=== PATIENT | female | born 1985 | race African-American/Black ===

== ENCOUNTER 2019-11-21 09:24 | Outpatient (CLI) | payer OTHER, SELFPAY ==
[2019-11-21 09:40] LABS: Hematocrit 36.4 % (37.0-47.0); Hemoglobin 12.1 g/dL (12.0-15.0); Immature Platelet Fraction Pct 6.5 % (0.9-11.2); Mean Corpuscular HGB Conc 33.2 g/dl (32-36); Mean Corpuscular Hemoglobin 31.3 pg (26-34); Mean Corpuscular Volume 94.3 fl (80-100); Platelet Count Result 117 k/mm3 (150-375); Red Blood Count 3.86 M/mm3 (4.2-5.4); Red Cell Distribution Width 14.1 % (11.5-14.5); White Blood Count 7.3 K/mm3 (4.5-10.0)
[2019-11-22 08:16] LABS: Rapid Plasma Reagin Non-Reactive (NonReactive)
== END 2019-11-21 09:25 | disposition home or self-care (01) ==
LOC: ANHLAB 09:26
PROVIDERS: PCP Family Medicine; Visit Provider Obstetrics & Gynecology
DX: Z01.818 Encounter for other preprocedural examination (principal)
CPT/HCPCS: 36415; 85027; 85055; 86592; 86850; 86900; 86901

== ENCOUNTER 2019-11-22 05:23 | Inpatient (IN) | payer OTHER, SELFPAY ==
--- NOTE | 2019-11-21 10:20 | WPDANESEPP ---
Anes - Eval Pre Procedure Procedure: Operation Date: 11/22/19 07:30 Proposed Procedures p Repeat Section - Nicolas Patel MD Date/Time: 11/21/19 10:20 Pre Op Diagnosis: Pre-admit Patient Data Age: 34 Gender: F Height: Weight: Allergies Allergy/AdvReac Type Severity Reaction Status Date / Time Penicillins Allergy Intermediate hives, Verified 08/06/18 14:14 fatigue, pain Home Medications Medication Instructions Recorded Confirmed Type PNV cmb#95-ferrous fumarate-FA 1 tablet PO DAILY 10/31/19 10/31/19 History [] Patient hx anesthesia problems: none Family hx anesthesia problems: none PMFSH Surgical History Surgical History (Updated 11/21/19 @ 10:21 by Antonette Dumont CRNA) H/O dilation and curettage S/P appendectomy S/P section Family History Family History (Updated 10/31/19 @ 15:01 by Fei Dickerson RN) Grandparent Diabetes mellitus Mother Thyroid disease Father Testicular cancer Lung cancer Social History Social History Substance use: never Gender identity (if verbalized by the patient): Female Spiritual care concerns: No Exam Day of Procedure 11/21/19 10:20
[2019-11-22] VITALS (53 sets, daily range): BP systolic 72–104; BP diastolic 47–67; PULSE 61–111; RESP 16–18; TEMP 36.1–36.8; O2SAT 95–100; BMI 31.8
--- NOTE | 2019-11-22 06:00 | LDADM ---
This patient, Nohemy Knight, was admitted to Labor/Delivery/Recovery 120 on 11/22/19 at 05:23. Plans for labor, pain management and were discussed with patient. Patient/family oriented to hospital policies and general routines including ID bracelet, bed and alarms, visiting hours, pain management, procedures, bathroom and other care routines, personal items, smoking policy, room service/diet and guest tray routines, security routines, and visiting hours. Patient/Family are encouraged to report perceived risks to care and to ask questions if they do not understand what they are told or what they should do. See OBIX for further documentation.
[2019-11-22 06:03] LABS: Immature Platelet Fraction Pct 6.6 % (0.9-11.2); Mean Platelet Volume 11.2 fl (7.4-10.4); Platelet Count Result 117 k/mm3 (150-375)
[2019-11-22] MEDS: LACTATED RINGERS 1,000 ML 999 ML IV CONT (06:32)
--- NOTE | 2019-11-22 06:37 | WPDANESEPPF ---
Anes - Initial Pre Proc Eval Procedure: Operation Date: 11/22/19 07:30 Proposed Procedures p Repeat Section - Nicolas Patel MD Date/Time: 11/22/19 06:37 Surgeon: Nicolas Patel MD Pre Op Diagnosis: Section Patient Data Age: 34 Gender: F Height: 5 ft 2 in Weight: 79 kg Last Vital Signs Pulse 111 H 11/22/19 06:31 BP 93/65 L 11/22/19 06:31 Allergies Allergy/AdvReac Type Severity Reaction Status Date / Time Penicillins Allergy Intermediate hives, Verified 08/06/18 14:14 fatigue, pain Home Medications Medication Instructions Recorded Confirmed Type PNV cmb#95-ferrous fumarate-FA 1 tablet PO DAILY 10/31/19 10/31/19 History [] Laboratory Tests 11/22/19 05:56 Plt Count 117 k/mm3 L k/mm3 (150-375) MPV 11.2 fl H fl (7.4-10.4) % Immature Plt Fraction 6.6 % % (0.9-11.2) Patient hx anesthesia problems: none Family hx anesthesia problems: none PMFSH Surgical History Surgical History H/O dilation and curettage S/P appendectomy S/P section Family History Family History Grandparent Diabetes mellitus Mother Thyroid disease Father Testicular cancer Lung cancer Social History Social History Substance use: never Gender identity (if verbalized by the patient): Female Spiritual care concerns: No Anes - Eval Final PreProcedure Day of Procedure 11/22/19 06:37 Patient weight: obese Heart: regular rate and rhythm Lungs: clear to auscultation Airway: Mallampati scale class II Neurological: alert and oriented Last oral intake: >/= 8 hours ASA classification: II Emergent: no Anesthetic plan: proceed Anesthesia type and monitoring: regional spinal and standard monitoring Informed Consent: The patient's anesthetic plan and its attendant risks and benefits were discussed with the patient/family/POA. Questions were solicited and answers provided to the satisfaction of the patient/family/POA.
[2019-11-22] MEDS: CLINDAMYCIN 900 MG/NS 50 ML 900 MG/50 ML PIGGYBACK 50 MG IVPB (06:56)
[2019-11-22] MEDS: GENTAMICIN SULFATE INJ 310 MG in DEXTROSE 5% 100 ML 100 MG IVPB (07:10)
--- NOTE | 2019-11-22 07:14 | PM.IMHP ---
H&P: HPI History of Present Illness Date/Time: 11/22/19 07:14 Chief complaint: Section Narrative: Nohemy Knight is a 34 year old female 3 para 1011 at 39 weeks gestation who presents for repeat delivery. She has a history of a previous . She has no complaints. She denies any loss of fluid, vaginal bleeding. She denies any headache, blurry vision, epigastric pain. She denies any chest pain shortness of breath. She denies any nausea , vomiting, fever, chills. Review of Systems Constitutional: Constitutional: Reports no additional constitutional complaints, Denies fatigue, Denies headache(s), Denies lethargy and Denies weakness Eyes: Eyes: Reports no additional eye complaints, Denies blurry vision and Denies photophobia ENT: Reports as per HPI, Denies headache(s) and Denies neck pain Cardiovascular: Cardiovascular: Denies chest pain, Denies diaphoresis, Denies leg edema, Denies palpitations and Denies dyspnea Respiratory: Respiratory: Denies hemoptysis, Denies dyspnea and Denies wheezing Gastrointestinal: Gastrointestinal: Denies abdominal pain, Denies melena, Denies bloating, Denies hematochezia, Denies nausea and Denies vomiting Genitourinary: Genitourinary: Reports no additional female genitourinary complaints Musculoskeletal: Musculoskeletal: Denies joint swelling, Denies neck pain, Denies numbness and Denies stiffness Neurologic: Denies Abnormal speech present, Denies confusion, Denies headache(s), Denies numbness and Denies weakness Psychiatric: Psychiatric: Denies anxiety, Denies confusion, Denies depression, Denies homicidal ideation and Denies suicidal ideation Endocrine: Endocrine: Denies fatigue and Denies palpitations Allergic/Immunologic: Allergic/Immunologic: Denies wheezing PMFSH Surgical History Surgical History H/O dilation and curettage S/P appendectomy S/P section Family History Family History Grandparent Diabetes mellitus Mother Thyroid disease Father Testicular cancer Lung cancer Social History Social History Smoking status: Never smoker Second hand tobacco smoke exposure: No Substance use: never Gender identity (if verbalized by the patient): Female Spiritual care concerns: No Meds Home Medications and Allergies Home Medications Medication Instructions Recorded Confirmed Type PNV cmb#95-ferrous fumarate-FA 1 tablet PO DAILY 10/31/19 10/31/19 History [] Allergies Allergy/AdvReac Type Severity Reaction Status Date / Time Penicillins Allergy Intermediate hives, Verified 08/06/18 14:14 fatigue, pain Vital Signs Vital Signs - 24 hr 11/22/19 05:55 11/22/19 06:01 11/22/19 06:31 Pulse Rate 96 91 111 H Blood Pressure 93/60 L 102/59 L 93/65 L Exam Const: General: healthy appearing, comfortable and no acute distress; No confusion Orientation/consciousness: No confusion Eyes: Direct Ophthalmoscopy: No photophobia Resp: Auscultation: clear to auscultation bilaterally, no rales, no rhonchi and no wheezes Cardio: Rate: regular rate Heart sounds: no click, no murmurs and no rubs GI: Inspection: non-distended GI Palp: No abdominal tenderness Auscultation: normal bowel sounds Neuro: General: No confusion Speech: No Abnormal speech present Extrem: General: normal to inspection, no pedal edema and no calf tenderness H&P: Results Labs Labs: Short CBC 11/22/19 Range/Units 05:56 Plt Count 117 L (150-375) k/mm3 Assessment and Plan Assessment and plan (1) Term : Code(s): Z34.90 - Encounter for supervision of normal , unspecified, unspecified trimester Status: Acute (2) Previous section: Code(s): Z98.891 - History of uterine scar from previous surgery
[2019-11-22] MEDS: LACTATED RINGERS 1,000 ML 125 ML IV CONT (07:30)
--- NOTE | 2019-11-22 08:40 | P.OP_ITS ---
Procedure Note - Detailed Date of procedure: 11/22/19 Pre-op diagnosis: Section Term gestation, Previous Post-op diagnosis: same Procedure performed: low-transverse delivery Description of procedure: The patient was taken the operating room. She was prepped and draped in the dorsal supine position with leftward tilt after induction of spinal anesthetic. When anesthesia was found to be adequate a low- transverse skin incision was made and carried down to the level the fascia with the knife. The fascial incision was made at the midline with a scalpel. The fascial incision was extended laterally with Dickey scissors. The fascia was tented upward superior and inferior with Mateo clamps. The rectus muscles were dissected off bluntly. The rectus muscles at the midline. The preperitoneal fat was dissected bluntly at the superior aspect of the separate the rectus muscles. The peritoneal cavity was entered bluntly in the same area. The peritoneal incision was extended superior and inferior with good visualization of bladder. Bladder blade was inserted. A low-transverse incision was made on the uterus with the scalpel. It was carried down the level of the amniotic cavity with a knife. The amniotic cavity bluntly. The uterine incision was made laterally with blunt traction. The was delivered. The cord was clamped and cut. The infant was handed off to waiting pediatric staff. Cord bloods were obtained. The placenta was removed manually. The uterus was exteriorized. Uterus cleared of all clots and debris. Uterus closed in 0 Vicryl in a running locked fashion. An imbricating layer of 0 Vicryl was also placed on the to bolster the closure. The uterus was returned to the abdomen. The gutters were cleared of all clots and debris. The fascia was closed 0 Vicryl in a running fashion. Subcutaneous tissue was irrigated and bleeding areas were cauterized. The skin was closed with subcuticular absorbable sonia. The incision was covered with derma zhang. The patient tolerated the procedure well. She was taken recovery room stable condition. Sponge, lap, needle counts were correct x2. Anesthesia: spinal Surgeon: Nicolas Patel MD Estimated blood loss (mL): 240 Drains: No Packing: No Pathology: none sent Complications: No immediate complications Condition: stable Disposition: floor Findings: Normal maternal anatomy. Average size infant with normal Apgars.
[2019-11-22] MEDS: OXYTOCIN 30 UNITS/NS 500 ML 30 UNITS/500 ML BAG 125 UNITS IV CONT (08:59)
[2019-11-22] MEDS: LORATADINE 10 MG TABLET PO (09:09)
--- NOTE | 2019-11-22 10:46 | PC.NURSE ---
Patient transferred to post room #282 per stretcher from labor and delivery. Support person present. Oriented to unit, room, information board, rooming in, admission packet and security measures. Patient verbalizes understanding.
[2019-11-22] MEDS: IBUPROFEN 600 MG TABLET PO ×2 (12:57→18:40)
[2019-11-22] MEDS: DEXTROSE 5%/0.45% SOD CHL 1,000 ML 125 ML IV CONT (13:25)
[2019-11-23] MEDS: IBUPROFEN 600 MG TABLET PO ×4 (01:23→21:00)
[2019-11-23 04:45] VITALS: BP 90/51; PULSE 78; RESP 16; TEMP 36.8
[2019-11-23 05:06] LABS: Basophils Percent Auto 0.4 % (0.2-1.2); Eosinophils Absolute Auto 0.1 K/mm3 (0-0.3); Eosinophils Percent Auto 1.5 % (0-4.4); Immature Granulocyte Absolute 0.06 K/mm3 (0.00-0.031); Immature Granulocyte Percent A 0.7 % (0-0.5); Immature Platelet Fraction Pct 6.9 % (0.9-11.2); Lymphocytes Absolute Auto 1.03 K/mm3 (0.9-3.2); Lymphocytes Percent Auto 12.6 % (18.3-44.2); Mean Corpuscular HGB Conc 33.3 g/dl (32-36); Mean Corpuscular Hemoglobin 31.6 pg (26-34); Mean Corpuscular Volume 94.7 fl (80-100); Mean Platelet Volume 11.4 fl (7.4-10.4); Monocytes Absolute Auto 0.7 K/mm3 (0.1-0.6); Monocytes Percent Auto 8.2 % (2.6-8.5); Neutrophils Absolute Auto 6.3 K/mm3 (1.3-6.7); Neutrophils Percent Auto 76.6 % (45.5-73.1); Platelet Count Result 118 k/mm3 (150-375); Red Cell Distribution Width 13.9 % (11.5-14.5); White Blood Count 8.2 K/mm3 (4.5-10.0)
[2019-11-23 07:40] VITALS: BP 100/65; PULSE 85; RESP 16; TEMP 36.9; O2SAT 99
--- NOTE | 2019-11-23 07:50 | WPDANLDPN2 ---
Anes-Prog Note L&D Date/Time: 11/23/19 07:50 Comfortable throughout: section Neuraxial method: spinal Epidural/Spinal procedure site: clean & non-tender Neuro status: Neuro function grossly intact. Cardiovascular status: normal Respiratory status: normal Airway patency: baseline Mental status: baseline Post-Op hydration status: normal Vital Signs: Last Vital Signs Temp 36.8 C 11/23/19 04:45 Pulse 78 11/23/19 04:45 Resp 16 11/23/19 04:45 BP 90/51 L 11/23/19 04:45 Pulse Ox 99 11/22/19 14:24 I/O: Intake & Output 11/22/19 11/22/19 11/23/19 15:59 23:59 07:59 Intake Total 1550 1540 Output Total 1375 1700 1300 Balance 175 -160 -1300 Post-procedural complaints: none Patient feedback: Patient satisfied with anesthetic care.
--- NOTE | 2019-11-23 07:51 | WPDANLDNPN2 ---
Anes-Prog Note L&D-Neuraxial Date/Time: 11/23/19 07:51 Neuraxial medications: intrathecal PF morphine Opiod-related complaints: none Patient feedback: Patient satisfied with post-operative pain management.
--- NOTE | 2019-11-23 08:05 | P.PNOB_ITS ---
OB - PN: Subj Subjective Date/time seen: 11/23/19 08:05 Incision open to air and looks good. Fundus firm. Flow controlled. Minimal edema lower ext. Neg homans. No redness, warmth, or tenderness. OB - PN: Obj Data Labs CBC & Chem 7: 11/23/19 04:43 Labs: Laboratory Results - last 24 hr 11/23/19 04:43 WBC 8.2 RBC 3.80 L Hgb 12.0 Hct 36.0 L MCV 94.7 MCH 31.6 MCHC 33.3 RDW 13.9 Plt Count 118 L MPV 11.4 H Immature Gran % (Auto) 0.7 H Neut % (Auto) 76.6 H Lymph % (Auto) 12.6 L [place] % (Auto) 8.2 Eos % (Auto) 1.5 Baso % (Auto) 0.4 Lymph # (Auto) 1.03 [place] # (Auto) 0.7 H Eos # (Auto) 0.1 Baso # (Auto) 0.0 Abs Immat Gran (auto) 0.06 H Absolute Neuts (auto) 6.3 Absolute Nucleated RBC 0.0 Nucleated RBC % 0.0 % Immature Plt Fraction 6.9 OB - PN A/P Time Spent With Patient Time: Total time spent is greater than 50% in coordination of care (as documented) at patient's floor/unit and/or counseling patient: Review of Systems Review of Systems: All systems reviewed & are unremarkable except as noted in HPI and below Exam Const: General: comfortable Chest: Breast/axilla inspection: normal inspection of the breasts Resp: Effort & Inspection: normal respiratory effort Auscultation: clear to auscultation bilaterally Cardio: Rate: regular rate GI: Auscultation: normal bowel sounds Psych: Appearance: grossly normal Affect: normal affect Attitude: cooperative Judgement: Good judgement present (Psych)
[2019-11-23] MEDS: MULTIVIT/MIN/PREN/FOL AC/IRON TABLET 1 TAB PO (08:34)
[2019-11-23] MEDS: DOCUSATE SODIUM 100 MG CAPSULE PO ×2 (08:34→17:07)
--- NOTE | 2019-11-23 11:05 | PC.NURSE ---
Consulted with patient, reports first child and is concerned this infant is sleepy and need to be awoken to feed and will be sleepy at breast. Assured mother this is normal for the first few days. Reviewed infant feeding cues, frequencies, duration of feedings, feeding elimination flow sheet, and signs of adequate intake. Demonstrated stimulation techniques to wake for feeding. Assisted with infant to breast. Reviewed positioning/alignment in cross cradle, holding breast in U hold and guided asymmetrical latch on. Within a few attempts was able to latch correctly. nursed eagerly, with steady draws and frequent swallowing with pausing. Reviewed signs of a correct latch, effective nursing and suck swallow ratio. was able to maintain latch without discomfort to mother. Nipple care reviewed. Suggested to stimulate infant while feeding to keep awake and nursing effectively for increased intake and to assist with maintaining deep latch. Demonstrated how to adjust latch while feeding. Instructed mother to call out for RN assistance if she is unable to latch infant for feeding or she has discomfort with nursing. Instructed feeding should be initiated three hours from start of last feeding or if feeding cues are noted before. Mother voiced understanding of information shared.
[2019-11-23 19:20] VITALS: BP 108/60; PULSE 83; RESP 16; TEMP 36.8
[2019-11-24] MEDS: IBUPROFEN 600 MG TABLET PO (05:13)
[2019-11-24 08:20] VITALS: BP 96/59; PULSE 75; RESP 18; TEMP 37.6; O2SAT 100
--- NOTE | 2019-11-24 08:27 | PM.OBPNVD ---
OB - PN: Subj Subjective Date/time seen: 11/24/19 08:27 Patient comments: no complaints, pain well controlled, incisional pain, tolerating diet and flatus present OB - PN: Obj Data Labs CBC & Chem 7: 11/23/19 04:43 OB - PN A/P Plan day: 2 Plan: routine care and discharge home Comments: POD#2 LTCS - no problems, Time Spent With Patient Time: Total time spent is greater than 50% in coordination of care (as documented) at patient's floor/unit and/or counseling patient: Exam Const: General: comfortable, no acute distress and alert Resp: Effort & Inspection: normal respiratory effort Auscultation: no crackles, no rales and no rhonchi Cardio: Rate: regular rate Heart sounds: no click, no murmurs and no rubs GI: Inspection: non-distended GI Palp: No Tenderness to palpation present (GI) Auscultation: normal bowel sounds Other: Incision - CDI Extrem: General: normal to inspection, no pedal edema and no calf tenderness
--- NOTE | 2019-11-24 08:27 | PM.OBDSVD ---
DS: Admitting Diagnosis Admitting Diagnosis Admitting Diagnosis: Encounter for supervision of normal , unspecified, unspecified trimester DS: Discharge Diagnosis Discharge Diagnosis (1) Previous section: Code(s): Z98.891 - History of uterine scar from previous surgery Status: Acute (2) Term : Code(s): Z34.90 - Encounter for supervision of normal , unspecified, unspecified trimester Status: Acute OB - DS: Summary OB Procedures : None OB Procedures Intrapartum: OB Procedures: : None Peripartum Data Delivery Method: Section Procedures: Procedures Operation Date: 11/22/19 07:30 Actual Procedures Side Surgeon p Repeat Section Not Applicable Nicolas Patel MD complications: none Status at Discharge Functional status at discharge: independent ambulation Time Spent with Patient Time attestation: Total time spent providing and/or coordinating discharge services: Discharge Plan Discharge Discharging Clinician: Nicolas Patel Patient Disposition: Home, Self-Care Activity: pelvic rest Diet: regular Patient Instructions: Antibiotic Form Stand Alone Forms: General Discharge Information Follow-up/Referrals: Nicolas Patel MD [Physician] - Discharge Medications: New hydrocodone-acetaminophen 5-325 mg tablet 1 - 2 tablet PO Q4H PRN (Reason: pain) Qty: 25 RF: 0 Continued PNV cmb#95-ferrous fumarate-FA [] 28 mg iron- 800 mcg Tablet 1 tablet PO DAILY RF: 0 Date of admission: 11/22/19 05:23 Primary Care Provider: Jamar,Chantelle Miller Admitting Provider: Nicolas Patel Attending physician on admission: Nicolas Patel
[2019-11-24] MEDS: DOCUSATE SODIUM 100 MG CAPSULE PO (08:30)
--- NOTE | 2019-11-24 08:30 | PC.NURSE ---
Patient instructed to view the discharge video Mother & Baby Care, The First Two Weeks . Patient was given the opportunity and encouraged to ask questions. Patient verbalized understanding of information shared and has been given the mother/baby guide for home reference.
[2019-11-24] MEDS: MULTIVIT/MIN/PREN/FOL AC/IRON TABLET 1 TAB PO (08:31)
--- NOTE | 2019-11-24 09:15 | PC.NURSE ---
Mother is able to independently latch infant with appropriate positioning/alignment. She denies any nipple discomfort, is feeding as required and waking to feed if needed. has had at least 8 effective feedings in the past 24 hours, and is currently meeting outcomes for weight, output, jaundice and feeding frequencies. Mother states she feels confident to continue effective at home. Reviewed transition to breast milk, signs of adequate intake, and engorgement/relief. Instructed to call ICP if intake/output less than required. Reviewed regular medications mother is taking. Information provided per Sheila. Reviewed community resources on the [facility] website and in the Mom/Baby guide. Information on outpatient services provided. Mother has no further questions at this time.
--- NOTE | 2019-11-24 11:55 | PC.NURSE ---
Pt discharged via wheelchair to waiting car. A few minutes after discharge, patient's came back up to the floor and asked if RN could come to assess mother in the car. Pt felt a pop in her pelvic area when lifting her leg into her car and saw a small spot of blood near her incision. Assured mother that her incision was well approximated and that a small amount of drainage was normal with the insorb sonia that she has. Pt was very anxious and tearful and RN encouraged her to call the office or carbon dioxide operator line with any concerns or anxieties she was having and that the follow up RN will see her tomorrow and will do a thorough assessment. 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 know if she feels like she needs some medication to help with her anxiety. Pt and her assured RN they would call the Dr. with any concerns.
[2019-11-25 10:40] VITALS: BP 106/78; PULSE 100; RESP 20; TEMP 36.9; O2SAT 100
== END 2019-11-24 11:47 | disposition home or self-care (01) | DRG 788 ==
LOC: ANHLDR 05:27 → ANHOB2 10:55
PROVIDERS: Admitting Provider Obstetrics & Gynecology; PCP Family Medicine; Visit Provider Obstetrics & Gynecology
PROC: 10D00Z1 Extraction of Products of Conception, Low, Open Approach (ICD-10-PCS; CPT 59514; principal; 2019-11-22 07:30)
DX: O34.211 Maternal care for low transverse scar from previous cesarean delivery (principal); Z37.0 Single live birth; Z3A.39 39 weeks gestation of pregnancy; O99.824 Streptococcus B carrier state complicating childbirth; O99.214 Obesity complicating childbirth; E66.9 Obesity, unspecified
CPT/HCPCS: 36415; 85025; 85049; 85055; A9270; J0131; J1200; J1580; J2274; J2405; J2590; J7120

== ENCOUNTER 2024-05-05 09:20 | Emergency (ER) | payer BC, SELFPAY ==
--- NOTE | ~2024-05-05 | CT_ITS ---
EXAMINATION: CTA chest PE abdomen pel DATE: 05/05/2024 14:53 INDICATION: Left chest pain. Left upper quadrant abdominal pain. TECHNIQUE: Computed tomography angiography (CTA) of the chest was performed with 100 mL Omnipaque-350 intravenous contrast timed to evaluate the pulmonary arteries. Coronal maximum intensity projection 3D-reconstructions were created by the technologist. Computed tomography (CT) of the abdomen and pelv is was performed with intravenous contrast. Automated exposure control and iterative reconstruction t echnique were employed. The dose-length product was 447.92 mGy-cm. COMPARISON: None. FINDINGS: CTA chest: There is no pneumonia or pleural effusion. The heart size is normal. No pericardial effusi on. There is no pulmonary embolus. CT abdomen and pelvis: The liver, gallbladder, spleen, pancreas, adrenal glands, and kidneys are norm al. There is an intrauterine device in expected position. There is right-sided hydrosalpinx. There is a 3.1 cm cyst in right ovary. There are no dilated loops of bowel. The appendix is nonvisualized. Th ere are no pathologically enlarged lymph nodes. There is physiologic fluid in the pelvis. The bones a re unremarkable. IMPRESSION: 1. No pulmonary embolus. 2. Right-sided hydrosalpinx. A 3.1 cm cyst in right ovary may be a follicular cyst or an abscess. Reviewed, dictated and finalized at location B. 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 No pulmonary embolus. 2. Right-sided hydrosalpinx. A 3.1 cm cyst in right ovary may be a follicular c yst or an abscess.
--- NOTE | ~2024-05-05 | US_ITS ---
EXAMINATION: US pelvic complete w TV DATE: 05/05/2024 16:10 INDICATION: Right ovarian cyst. TECHNIQUE: Multiple transabdominal and transvaginal sonographic images of the pelvis were obtained. COMPARISON: CT abdomen and pelvis 05/05/2024 FINDINGS: TRANSABDOMINAL ULTRASOUND: The uterus measures 7.1 x 3.5 x 4.6 cm. There is no free fluid in the pelvis. TRANSVAGINAL ULTRASOUND: The endometrial complex measures 5 mm in thickness. There is an intrauterine device in expected posit ion. There are changes of prior section in the low anterior segment. The right ovary measure s 4.0 x 4.1 x 4.0 cm. There is a right-sided hydrosalpinx. There is a 3.4 cm cystic mass with interna l echoes and septa in right ovary. The left ovary measures 2.4 x 1.4 x 2.5 cm. There is normal vascul ar flow in the ovaries. IMPRESSION: 1. Right-sided hydrosalpinx. 2. 3.4 cm cystic mass in right ovary, which may be a hemorrhagic cyst or an abscess. Reviewed, dictated and finalized at location B. 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 Right-sided hydrosalpinx. 2. 3.4 cm cystic mass in right ovary, which may be a hemorrhagic cyst or an abs cess.
[2024-05-05 09:28] VITALS: BP 117/72; PULSE 85; RESP 14; TEMP 36.8; O2SAT 100
--- NOTE | 2024-05-05 13:07 | ECG_ITS ---
Test Date: 2024-05-05 13:48:56 Measurements Intervals [place] Rate: 87 P: 77 [place]: 135 QRS: 78 QRSD: 81 T: 26 QT: 324 QTc: 392 Interpretive Statements SINUS RHYTHM POSSIBLE LEFT ATRIAL ENLARGEMENT [-0.1mV P-WAVE IN V1/V2] NONSPECIFIC T-WAVE ABNORMALITY No previous ECG available for comparison Electronically Signed On 05-05-2024 14:24:28 BUS MATRON by Melany Echeverria
[2024-05-05 13:50] LABS: Basophils Percent Auto 0.3 % (0.2-1.2); Eosinophils Absolute Auto 0.1 K/mm3 (0-0.3); Eosinophils Percent Auto 1.7 % (0-4.4); Hematocrit 45.7 % (37.0-47.0); Hemoglobin 14.9 g/dL (12.0-15.0); Immature Granulocyte Absolute 0.01 K/mm3 (0.00-0.031); Immature Granulocyte Percent A 0.2 % (0-0.5); Lymphocytes Absolute Auto 1.44 K/mm3 (0.9-3.2); Lymphocytes Percent Auto 23.9 % (18.3-44.2); Mean Corpuscular HGB Conc 32.6 g/dl (32-36); Mean Corpuscular Hemoglobin 31.4 pg (26-34); Mean Corpuscular Volume 96.4 fl (80-100); Mean Platelet Volume 10.9 fl (7.4-10.4); Monocytes Absolute Auto 0.4 K/mm3 (0.1-0.6); Monocytes Percent Auto 7.1 % (2.6-8.5); Neutrophils Percent Auto 66.8 % (45.5-73.1); Platelet Count Result 201 k/mm3 (150-375); Red Blood Count 4.74 M/mm3 (4.2-5.4); Red Cell Distribution Width 12.6 % (11.5-14.5)
[2024-05-05 13:51] LABS: Add Urine Microscopic? NO; Appearance Urine Clear (Clear); Bilirubin Urine Negative (Negative); Blood Urine Negative (Negative); Color Urine Yellow (Yellow); Glucose Urine UA Negative (Negative); Ketones Urine Negative (Negative); Leukocyte Esterase Ur Negative LEU/UL (Negative); Nitrate Urine Negative (Negative); Protein Urine Negative (Negative); Specific Grav Ur 1.018 (1.001-1.035); Urobilinogen Urine 0.2 mg/dL (<2.0); pH Urine 7.5 (5.0-9.0)
[2024-05-05 14:00] LABS: Alanine Aminotransferase 18 U/L (6-35); Alkaline Phosphatase 63 U/L (38-126); Anion Gap 13 mmol/L (4-12); Aspartate Amino Transferase 25 U/L (14-36); Bilirubin,Total 0.6 mg/dL (0.2-1.3); Blood Urea Nitrogen 14 mg/dL (7-17); Calcium 9.7 mg/dL (8.4-10.2); Carbon Dioxide 25 mmol/L (22-30); Chloride 101 mmol/L (98-107); Estimated CRCL calculation 61 ml/min; Estimated Glomerular Filt Rate > 60; Glucose 97 mg/dL (65-110); Lipase 58 U/L (23-300); Potassium 3.8 mmol/L (3.4-5.0); Sodium 139 mmol/L (137-145)
[2024-05-05 14:01] LABS: Lactic Acid Reflex 1.2 mmol/L (0.7-2.0)
[2024-05-05 14:11] LABS: Influenza A QL RT-PCR Negative (Negative); Influenza B QL RT-PCR Negative (Negative); RSV RNA, RT-PCR Negative (Negative); SARS-CoV-2 RNA PCR Negative (Negative)
[2024-05-05 14:12] LABS: NT Pro B Type Natriuretic Pept 25 pg/mL (19.9-100); Troponin I < 0.012 ng/mL (0.000-0.034)
[2024-05-05 14:22] VITALS: BP 107/74; PULSE 85; RESP 14; O2SAT 100
[2024-05-05 14:28] LABS: BEDSIDEPREGUCG Negative (Negative)
[2024-05-05 16:45] VITALS: BP 113/74; PULSE 80; RESP 16; O2SAT 100
--- NOTE | 2024-05-05 16:53 | ED_ITS ---
HPI - General Adult General Chief complaint: Unspecified Stated complaint: pain under rib Time Seen by Provider: 05/05/24 11:01 History of Present Illness HPI narrative: Patient 39-year-old female who presents emergency department with chief complaint of abdominal pain and left lower chest/abdominal pain. Patient reports that she has been seen by Cardiology reports she was treated for bacterial vaginosis by her primary care provider and states this pain does keeps moving around her abdomen. Related Data Home Medications ?Medication ?Instructions ?Recorded ?Confirmed ?Last Taken ?Type vit no.95-ferrous 1 tablet PO DAILY 10/31/19 10/31/19 Unknown History fumarate 28 mg-folic acid 800 mcg tablet () Allergies Allergy/AdvReac Type Severity Reaction Status Date / Time Penicillins Allergy Intermediate hives, Verified 08/06/18 14:14 fatigue, pain Review of Systems 2 Review of Systems: A 10 system review of systems was completed on the patient and is negative except for what is stated in the HPI. Nursing and ancillary documentation was reviewed. [facility] Surgical History Surgical History H/O dilation and curettage S/P section S/P appendectomy Family History Family History Grandparent Diabetes mellitus Mother Thyroid disease Father Testicular cancer Lung cancer Social History Social History Smoking status: Never smoker Second hand tobacco smoke exposure: No Substance use: never Gender identity (if verbalized by the patient): Female Spiritual care concerns: No Exam 2 Narrative: GENERAL: Well-appearing, well-nourished, and in no acute distress. HEAD: Normocephalic, atraumatic. EYES: PERRLA and EOMI. ENT: Nares clear, no rhinorrhea or epistaxis. Mucous membranes moist. NECK: Supple. CHEST: Clear to auscultation. No respiratory distress. HEART: Regular rate and rhythm. No murmur heard. Normal peripheral pulses. ABDOMEN: Soft, nontender, nondistended, normal active bowel sounds. EXTREMITIES: Normal range of motion. No edema. SKIN: Warm, dry, no rash. NEURO: No focal deficits. Alert and oriented x3. PSYCH: Normal mood and affect. Course Vital Signs Vital signs: Vital Signs Temperature 36.8 C 05/05/24 09:28 Pulse Rate 85 05/05/24 09:28 Respiratory Rate 14 05/05/24 09:28 Blood Pressure 117/72 05/05/24 09:28 Pulse Oximetry 100 05/05/24 09:28 Oxygen Delivery Room Air 05/05/24 09:28 Temperature 36.8 C 05/05/24 09:28 Pulse Rate 80 05/05/24 16:45 Respiratory Rate 16 05/05/24 16:45 Blood Pressure 113/74 05/05/24 16:45 Pulse Oximetry 100 05/05/24 16:45 Oxygen Delivery Room Air 05/05/24 09:28 Medical Decision Making MDM Narrative Medical decision making narrative: Differential diagnosis includes pulmonary embolism, intra-abdominal infection, pelvic infection CBC was within normal limits CMP was within normal limits troponin was negative BNP was normal urinalysis showed no evidence UTI COVID flu and RSV were negative Ultrasound showed 1. Right-sided hydrosalpinx. 2. 3.4 cm cystic mass in right ovary, which may be a hemorrhagic cyst or an abscess. CTA chest with abdomen pelvis showed 1. No pulmonary embolus. 2. Right-sided hydrosalpinx. A 3.1 cm cyst in right ovary may be a follicular cyst or an abscess. The patient is currently hemodynamically stable the patient will be given a dose of Rocephin will be started on Flagyl and doxycycline the patient follow-up with her primary care provider and her OBGYN Vital Signs Vital Signs: Vital Signs Temperature 36.8 C 05/05/24 09:28 Pulse Rate 85 05/05/24 09:28 Respiratory Rate 14 05/05/24 09:28 Blood Pressure 117/72 05/05/24 09:28 Pulse Oximetry 100 05/05/24 09:28 Oxygen Delivery Room Air 05/05/24 09:28 Temperature 36.8 C 05/05/24 09:28 Pulse Rate 80 05/05/24 16:45 Respiratory Rate 16 05/05/24 16:45 Blood Pressure 113/74 05/05/24 16:45 Pulse Oximetry 100 05/05/24 16:45 Oxygen Delivery Room Air 05/05/24 09:28 Lab Data 05/05/24 13:41 05/05/24 13:41 Labs: Lab Results 05/05/24 05/05/24 05/05/24 Range/Units 13:28 13:41 14:00 WBC 6.0 (4.5-10.0) K/mm3 RBC 4.74 (4.2-5.4) M/mm3 Hgb 14.9 (12.0-15.0) g/dL Hct 45.7 (37.0-47.0) % MCV 96.4 (80-100) fl MCH 31.4 (26-34) pg MCHC 32.6 (32-36) g/dl RDW 12.6 (11.5-14.5) % Plt Count 201 D (150-375) k/mm3 MPV 10.9 H (7.4-10.4) fl Immature Gran % (Auto) 0.2 (0-0.5) % Neut % (Auto) 66.8 (45.5-73.1) % Lymph % (Auto) 23.9 (18.3-44.2) % [place] % (Auto) 7.1 (2.6-8.5) % Eos % (Auto) 1.7 (0-4.4) % Baso % (Auto) 0.3 (0.2-1.2) % Lymph # (Auto) 1.44 (0.9-3.2) K/mm3 [place] # (Auto) 0.4 (0.1-0.6) K/mm3 Eos # (Auto) 0.1 (0-0.3) K/mm3 Baso # (Auto) 0.0 (0.0-0.1) K/mm3 Abs Immat Gran (auto) 0.01 (0.00-0.031) K/mm3 Absolute Neuts (auto) 4.0 (1.3-6.7) K/mm3 Absolute Nucleated RBC 0.000 (0.0-0.012) K/mm3 Nucleated RBC % 0.0 (0.0-0.2) % Sodium 139 (137-145) mmol/L Potassium 3.8 (3.4-5.0) mmol/L Chloride 101 (98-107) mmol/L Carbon Dioxide 25 (22-30) mmol/L Anion Gap 13 H (4-12) mmol/L BUN 14 (7-17) mg/dL Creatinine 0.86 (0.7-1.0) mg/dL Estim Creat Clear Calc 61 ml/min Estimated GFR > 60 (59 - ) Glucose 97 (65-110) mg/dL Lactic Acid 1.2 (0.7-2.0) mmol/L Calcium 9.7 (8.4-10.2) mg/dL Magnesium 2.0 (1.6-2.3) mg/dL Total Bilirubin 0.6 (0.2-1.3) mg/dL AST 25 (14-36) U/L ALT 18 (6-35) U/L Alkaline Phosphatase 63 (38-126) U/L Troponin I < 0.012 (0.000-0.034) ng/mL NT-Pro-B Natriuret Pep 25 (19.9-100) pg/mL Total Protein 9.0 H (6.3-8.2) g/dL Albumin 5.0 (3.5-5.1) g/dL Lipase 58 (23-300) U/L Urine Color Yellow (Yellow) Urine Appearance Clear (Clear) Urine pH 7.5 (5.0-9.0) Ur Specific Raymond 1.018 (1.001-1.035) Urine Protein Negative (Negative) mg/dL Urine Glucose (UA) Negative (Negative) mg/dL Urine Ketones Negative (Negative) mg/dL Ur Blood (Man) Negative (Negative) Urine Nitrate Negative (Negative) Urine Bilirubin Negative (Negative) Urine Urobilinogen 0.2 (<2.0) mg/dL Leukocyte Esterase Rfl Negative (Negative) DARLIN/UL POC Urine HCG, Qual Negative (Negative) Influenza A (RT-PCR) Negative (Negative) Influenza B (RT-PCR) Negative (Negative) RSV (RT-PCR) Negative (Negative) SARS-CoV-2 RNA (RT-PCR) Negative (Negative) Discharge Plan Discharge Clinical Impression: Abdominal pain, Hydrosalpinx, Ovarian cyst Patient Disposition: Home, Self-Care Condition: Stable Instructions: Antibiotic Form, Ovarian Cyst (ED), Abdominal Pain (ED) Additional Instructions: The ultrasound and CT shows that you have some fluid in your pelvis on the right side this could be an infection of the fallopian tube you also have an ovarian cyst Patient Language: Kazakh Prescriptions: New doxycycline hyclate 100 mg tablet 100 mg PO BID 14 Days Qty: 28 0RF metronidazole 500 mg tablet 500 mg PO Q12H 14 Days Qty: 28 0RF No Action PNV cmb#95-ferrous fumarate-FA [] 28 mg iron- 800 mcg Tablet 1 tablet PO DAILY hydrocodone-acetaminophen 5-325 mg tablet 1 - 2 tablet PO Q4H PRN (Reason: pain) Qty: 25 0RF Follow-up/Referrals: Frida Piña MD [Primary Care Provider] - Time of Disposition: 16:58
[2024-05-05] MEDS: cefTRIAXone 1 GM VIAL 0.5 GM IM (17:16)
[2024-05-05] MEDS: DOXYCYCLINE HYCLATE 100 MG TABLET PO (17:18)
[2024-05-05] MEDS: metroNIDAZOLE 500 MG TABLET PO (17:18)
--- OUTSIDE RECORDS SUMMARY | 2024-05-06 04:07 | XMS_ITS | Data Portability ---
Author Organization [facility] [place] Address [address] [place] [address] Care Team Providers Care Cosmetic Sales Consultant Name Role Phone RUDY RODRÍGUEZ Primary Care Provider Assessment Encounter Date Assessment Date Assessment LastModified by Organization Details LastModified Time 04/24/2023 04/24/2023 Annual gynecological exam performed. Patient will come back in a year unless there are new symptoms. Not available 04/24/2023 10:23:55 04/27/2024 04/27/2024 Annual gynecological exam performed. Patient will come back in a year unless there are new symptoms. [email or web address] Not available 04/25/2024 12:27:14 Plan of Treatment Reminders Order Date Submit Date Provider Last Modified By Organization Details Last Modified Time Details Appointments None recorded. Lab test, urine 2020 021 [email or web address] [place], Dora B, [place], [address], 16:33:36 urinalysis, dipstick 2023 024 [place], Dora B, [place], [address], 10:22:17 unlisted lab - women's health swab, GAURANG 2024 025 [facility] (Lab), [address], [place], [address], 5 14:30:13 Referral None recorded. Procedures None recorded. Surgeries None recorded. Imaging None recorded. Medication Orders Macrobid 100 mg capsule 2023 025 [id number], [address], [place], [id number], 5 10:28:05 fluconazole 150 mg tablet 2024 025 [id number], [address], [place], [id number], 5 11:11:16 Patient TargetsNo targets recorded. Patient InstructionsNo instructions recorded. Reason for Referral None Reported. Results Created Date Observation Date Name Description Value Unit Range Abnormal Flag Note LastModifiedBy Organization Detail LastModifiedTime 04/19/19 21 04/20/2020 lipid panel , serum cholesterol 179 mg/dL <200 Not Available [facility] ([facility]) [address] [place] [address] Dr Bae, [place], [address], 04/20/2020 10:34:49 04/19/19 21 04/20/2020 lipid panel , serum triglyceride s 57 mg/dL <150 Not Available [facility] ([facility]) [address] [place] [address] Dr Bae, [place], [address], 04/20/2020 10:34:49 04/19/19 21 04/20/2020 lipid panel , serum HDL cholesterol 66 mg/dL >39 Not Available [facility]) [address] [place] [address] Dr Bae, [place], [address], 04/20/2020 10:34:49 04/19/19 21 04/20/2020 lipid panel , serum cholesterol / HDL ratio 2.71 ratio 0.00-4 .44 Not Available [facility] -[facility] ([facility]) [address], [place], [address], 04/20/2020 10:34:49 04/19/19 21 04/20/2020 lipid panel , serum non-HDL cholesterol 113 mg/dL <130 Not Available [facility] ([facility]) [address], [place], [address], 04/20/2020 10:34:49 04/19/19 21 04/20/2020 lipid panel , serum LDL cholesterol (calculation ) 102 mg/dL <130 LDL Monica stero l Level s Less than 100 mg/dL Optim al 100 to 129 mg/dL Near Optim al/ Above Optim al 130 to 159 mg/dL Borde rline High 160 to 189 mg/dL High 190 mg/dL and above Very High * Categ adamaris as rolanda carrero d by the 2004 ATPII I guide lines Not Available [facility] ([facility]) [address], [place], [address], 04/20/2020 10:34:49 04/19/19 21 04/20/2020 lipid panel , serum LDL/HDL ratio 1.5 ratio <3.3 ___ LDL Monica stero l Patie nt Histo ry ___ Test Date: 04/19 LDL Resul ts: 102 Units : mg/dL % Villarreal e: - ___ Note: Ameri can Heart Assoc iatio n recom mends using total monica stero l and HDL numbe rs rathe r than ratio s for patie nt class ifica tion. New guide lines from AHA/A CC recom mend again st using speci fic LDL targe ts for patie nt manag ement . Rathe r a perce ntage decre ase is the isaias ed patie nt manag ement algor ithm, betwe en 30% and 50% reduc tion. If you would like to have your patie nts Cardi ovasc ular Risk Asses sment class ifica tion (per 2013 AHA/A CC guide lines ) 10-ye ar ASCVD score , pleas e order the ASCVD Advan elisabeth Lipid Joe terrazas ([facility] Not Available [facility] ([facility]) [address] [place] [address] Dr Bae, [place], [address], 04/20/2020 10:34:49 04/19/19 21 04/20/2020 CBC WBC 5.2 K/uL 3.8-11 .5 Not Available [facility] -[facility] ([facility]) [address] [place] [address] Dr Bae, [place], [address], 04/20/2020 10:34:49 04/19/19 21 04/20/2020 CBC red blood cell count (RBC) 4.81 M/mm3 3.60-5 .30 Not Available [facility] ([facility]) [address] [place] [address] Dr Bae, [place], [address], 04/20/2020 10:34:49 04/19/19 21 04/20/2020 CBC hemoglobin (HGB) 15.1 gm/dL 11.5-1 5.5 Not Available [facility] ([facility]) [address] [place] [address] Dr Bae, [place], [address], 04/20/2020 10:34:49 04/19/19 21 04/20/2020 CBC hematocrit (HCT) 44.0 % 35.2-4 6.4 Not Available [facility] ([facility]) [address] [place] [address] Dr Bae, [place], [address], 04/20/2020 10:34:49 04/19/19 21 04/20/2020 CBC MCV 91.5 fL 79.0-9 9.0 Not Available [facility] ([facility]) [address] [place] [address] Dr Bae, [place], [address], 04/20/2020 10:34:49 04/19/19 21 04/20/2020 CBC MCH 31.4 pg 26.9-3 5.0 Not Available [facility] ([facility]) [address] [place] [address] Dr Bae, [place], [address], 04/20/2020 10:34:49 04/19/19 21 04/20/2020 CBC MCHC 34.3 g/dL 30.4-3 4.8 Not Available [facility] ([facility]) [address] [place] [address] Dr Bae, [place], [address], 04/20/2020 10:34:49 04/19/19 21 04/20/2020 CBC RDW 39.8 fL 38.6-5 3.8 Not Available [facility] ([facility]) [address] [place] [address] Dr Bae, [place], [address], 04/20/2020 10:34:49 04/19/19 21 04/20/2020 CBC platelet count 234 K/cum m 137-39 7 Not Available [facility] ([facility]) [address] [place] [address] Dr Bae, [place], [address], 04/20/2020 10:34:49 04/19/19 21 04/20/2020 CMP, serum or plasm a sodium 139 mEq/L 135-14 5 Not Available [facility] ([facility]) [address] [place] [address] Dr Bae, [place], [address], 04/20/2020 10:34:50 04/19/19 21 04/20/2020 CMP, serum or plasm a potassium 4.5 mEq/L 3.5-5. 3 Not Available [facility] ([facility]) [address] [place] [address] Dr Bae, [place], [address], 04/20/2020 10:34:50 04/19/19 21 04/20/2020 CMP, serum or plasm a chloride 103 mEq/L 97-108 Not Available [facility] ([facility]) [address] [place] [address] Dr Bae, [place], [address], 04/20/2020 10:34:50 04/19/19 21 04/20/2020 CMP, serum or plasm a CO2 25 mEq/L 22-32 Not Available [facility] ([facility]) [address] [place] [address] Dr Bae, [place], [address], 04/20/2020 10:34:50 04/19/19 21 04/20/2020 CMP, serum or plasm a glucose 85 mg/dL 65-99 Not Available [facility] ([facility]) [address] [place] [address] Dr Bae, [place], [address], 04/20/2020 10:34:50 04/19/19 21 04/20/2020 CMP, serum or plasm a BUN 8 mg/dL 6-20 Not Available [facility] ([facility]) [address] [place] [address] Dr Bae, [place], [address], 04/20/2020 10:34:50 04/19/19 21 04/20/2020 CMP, serum or plasm a creatinine 0.86 mg/dL 0.50-1 .00 Not Available [facility] ([facility]) [address] [place] [address] Dr Bae, [place], [address], 04/20/2020 10:34:50 04/19/19 21 04/20/2020 CMP, serum or plasm a calcium 10.0 mg/dL 8.6-10 .4 Not Available [facility] ([facility]) [address] [place] [address] Dr Bae, [place], [address], 04/20/2020 10:34:50 04/19/19 21 04/20/2020 CMP, serum or plasm a protein 8.0 g/dL 6.0-8. 3 Not Available [facility] ([facility]) [address] [place] [address] Dr Bae, [place], [address], 04/20/2020 10:34:50 04/19/19 21 04/20/2020 CMP, serum or plasm a albumin 4.7 g/dL 3.5-5. 3 Not Available [facility] ([facility]) [address] [place] [address] Dr Bae, [place], [address], 04/20/2020 10:34:50 04/19/19 21 04/20/2020 CMP, serum or plasm a alkaline phosphatase 69 IU/L 35-121 Not Available [facility] ([facility]) [address] [place] [address] Dr Bae, [place], [address], 04/20/2020 10:34:50 04/19/19 21 04/20/2020 CMP, serum or plasm a ALT (SGPT) 34 IU/L <5-47 Not Available [facility] ([facility]) [address] [place] [address] Dr Bae, [place], [address], 04/20/2020 10:34:50 04/19/19 21 04/20/2020 CMP, serum or plasm a AST (SGOT) 27 IU/L <5-40 Not Available [facility] ([facility]) [address] [place] [address] Dr Bae, [place], [address], 04/20/2020 10:34:50 04/19/19 21 04/20/2020 CMP, serum or plasm a bilirubin, total 0.4 mg/dL <0.2-1 .2 Not Available [facility] [address] [place] [address] Dr Bae, [place], [address], 04/20/2020 10:34:50 04/19/19 21 04/20/2020 CMP, serum or plasm a A/G ratio 1.4 mg/dL 1.1-2. 5 Not Available [facility] [address] [place] [address] Dr Bae, [place], [address], 04/20/2020 10:34:50 04/19/19 21 04/20/2020 GFR, estim ated (eGFR ), serum estimated GFR (black) 102 mL/mi n/1.7 3m2 >[address] [facility]) [address] [place] [address] Dr Bae, [place], [address], 04/20/2020 10:34:50 04/19/19 21 04/20/2020 GFR, estim ated (eGFR ), serum estimated GFR (other) 88 mL/mi n/1.7 3m2 >59 GFR Categ ories in Chron ic Kidne y Disea se (CKD) GFR Categ ory GFR (mL/m in/1. 73 sq. meter s) Inter preta tion G1 90 or great er Deepa l or high* G2 60-89 Mild decre ase* G3a 45-59 Mild to moder ate decre ase G3b 30-44 Moder ate to sever e decre ase G4 15-29 Sever e decre ase G5 14 or less Georgie y failu re *In the absen ce of caitlin espinoza er GFR categ ory G1 or G2 fulfi ll the crite jhonny for CKD (Noa benito Int Suppl 2013; 3.1-1 50) The CKD-E PI calcu latio n is inten ded for use in patie nts 18 years of age and older . Decre ased calcu latio n accur acy may be seen in patie nts takin g medic ation s that affec t renal excre tion, or in those patie nts with extre mes in muscl e mass or diet. Not Available [facility] ([facility]) [address] [place] [address] Dr Bae, [place], [address], 04/20/2020 10:34:50 04/19/19 21 04/20/2020 TSH, serum or plasm a TSH reflex to FT4 0.95 mU/L 0.27-4 .20 Not Available [facility] ([facility]) [address] [place] [address] Dr Bae, [place], [address], 04/20/2020 10:34:51 04/19/19 21 04/20/2020 vitam in D, 25-hy droxy , total , serum vitamin D 25-hydroxy 51.0 NG/mL 30.0-1 00.0 Inter preta tion of Vitam in D 25 OH: < 20 ng/mL - Defic iency 20 - 29 ng/mL - Insuf ficie ncy 30 - 100 ng/mL - Suffi cienc y > 100 ng/mL - Super -ther apeut ic- toxic ity may occur above this level . Clini preet corre latio n requi red. Not Available [facility] ([facility]) [address] [place] [address] Dr Bae, [place], [address], 04/20/2020 10:34:51 04/19/19 21 04/20/2020 pap, LB Pap test thin prep Negati ve for Intrae pithel ial Lesion or Malign archana normal ACCES PALMIRA #: [id number] Sour e: Cervi preet/E ndoce rvica l LMP: 03/18 Date Taken : 04/19 Speci men Type: ThinP rep Vial Date Repor michael: 021 Clini preet Data: Cytot ech: Alize A. Snodd y, CT( CP) Date Repor michael: Speci men Adequ acy: Satis facto ry for evalu ation Endoc ervic al/tr ansfo rmati on zone compo nent prese nt Gener al Categ oriza tion: NEGAT TYRA FOR INTRA EPITH ELIAL LESIO N OR MALIG SAIRA This speci men has been abdullahi zed by the ThinP rep Imagi ng Syste m, an inter activ e compu ter syste m which cory ts the lab in the [facility] of ThinP rep Pap Test slide s. Follo wing imagi ng, the slide was revie wed by a Cytot echno logis t and/o r Patho logis t. End of Repor t Techn ical servi emani provi ded by [employer] Patho logis [employer], d/b/a [facility], [address] [place] [address] Raheem Partida MD, Labor ator Dire tor. Case revie wed and diagn osis rende red at [facility] [employer] Patho logis [facility], [facility], d/b/a PathDonald chou, [address] [place] [address] Raheem Partida MD, Labor ator Dire tor. CONFI DENTI AL Not Available [facility]) [address], [place], [address], 04/20/2020 22:24:53 04/23/19 21 04/24/2020 CT + NG DNA, PCR, unspe cifie d speci men trichomonas vaginalis, aptima (panther) NOT DETECT ED normal DNA testi ng perfo rmed by Trans cript ion Media michael Ampli ficat ion (TMA) These resul ts shoul d be inter prete d in light of all clini preet and labor atory findi ngs. This assay is highl y accur ate, but rare false posit tyra and negat tyra resul ts may occur . Posit tyra resul ts in low preva lence popul ation s may requi re re-ev aluat ion. A negat tyra resul t does not precl ude a possi ble infec tion due to a speci men inade quacy or sampl ing error . Test perfo rmed by [employer] iated Patho logis [facility], [facility], d/b/a Path[facility], [address], [place] [address] , Ludwig Waller ra, DO, Labor atory Direc tor. Not Available [facility]) [address] [place] [address] [address], [place], [address], 04/24/2020 16:22:29 04/23/19 21 04/24/2020 CT + NG DNA, PCR, unspe cifie d speci men neisseria gonorrhoeae, aptima NOT DETECT ED normal DNA testi ng perfo rmed by Trans cript ion Media michael Ampli ficat ion (TMA) These resul ts shoul d be inter prete d in light of all clini preet and labor atory findi ngs. This assay is highl y accur ate, but rare false posit tyra and negat tyra resul ts may occur . Posit tyra resul ts in low preva lence popul ation s may requi re re-ev aluat ion. A negat tyra resul t does not precl ude a possi ble infec tion due to a speci men inade quacy or sampl ing error . Test perfo rmed by [employer] iated Patho logis [facility], [facility], d/b/a [facility], [address], [place] [address] , Ludwig Waller ra, , Labor atory Direc tor. Not Available [facility]) [facility] [address], [place], [address], 04/24/2020 16:22:29 04/23/19 21 04/24/2020 CT + NG DNA, PCR, unspe cifie d speci men chlamydia trachomatis, aptima NOT DETECT ED normal DNA testi ng perfo rmed by Trans cript ion Media michael Ampli ficat ion (TMA) These resul ts shoul d be inter prete d in light of all clini preet and labor atory findi ngs. This assay is highl y accur ate, but rare false posit tyra and negat tyra resul ts may occur . Posit tyra resul ts in low preva lence popul ation s may requi re re-ev aluat ion. A negat tyra resul t does not precl ude a possi ble infec tion due to a speci men inade quacy or sampl ing error . Test perfo rmed by [facility], d/b/a Bao [facility], [address] [facility] [address], [place] [address] , Ludwig Waller ra, DO, Labor atory Direc tor. Not Available [facility] [address] [facility] [address], [place], [address], 04/24/2020 16:22:29 04/23/19 21 04/23/2020 pregn archana test, urine HCG negati ve Not Available [place] [address], [place], [address], 04/23/2020 11:52:06 04/24/19 24 04/24/2023 IMAGE GUIDE D PAP AND HPV REGAR DLESS image guided Pap, HPV regardless of Pap result SEE RESULT S BELOW CASE REPOR T: Cytol ogy Gynec ologi preet Repor t Case: [id number] Autho maria luisa torres Provi jay jay: Rodrigo Verdin Colle cted: 04/24 1518 RETAIL SALES 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 Elect isabela zamorano esmer d by Kaitlin Price, CT on 2023 at 2:32 PM ----- ----- ----- ----- ----- ----- ----- ----- ----- ----- ----- ----- ----- ----- ----- ----- ----- ---- HPV RESUL TS: HPV mRNA E6/E7 : No HPV mRNA Detec michael NOTE: This high risk HPV mRNA assay detec ts fourt een high- risk HPV types (16, 18, 31, 33, 35, 39, 45, 51, 52, 56, 58, 59, 66, 68) witho ut diffe renti ation . COMME NT: This speci men was revie wed by a Cytot echno logis t and/o r Patho logis t (as indic ated in this repor t) after evalu ation using the Thinp rep Imagi ng Syste m. CLINI PREET INFOR MATIO N: Menst rual Statu s: LMP (if appli cable ): Clini preet Histo ry/Pr eviou s Pap: Type of Neopl brigida (if appli cable ): Signi fican t Clini preet Findi ngs: Other Histo ry: Hormo ascencion (if appli cable ): PAP EDUCA STU L NOTE: The Pap Test is a scree serjio test with an inher ent false negat tyra rate. Liqui d-bas ed sampl ing may decre ase, but will not elimi crissy, false negat tyra resul ts. A negat tyra resul t does not precl ude the prese nce and/o r devel opmen t of disea se, since the prese nce of abnor mal cells in the sampl e depen ds on the locat ion of the lesio n and sampl ing techn ique. Isidro nued regul ar scree serjio is the best metho d of cance r preve ntion . If repor michael cytol ogic findi ng do not corre late with physi preet and/o r histo rical findi ngs, furth er inves tigat ion is recom magan d, as clini gwen queen nted. Not Available [facility] (Lab) [address], [place], [address], 04/27/2023 15:36:08 06/11/19 24 06/11/2023 CULTU RE: URINE result report SEE RESULT S BELOW abnormal Test: Cultu re: Urine Speci men Sourc e: Urine Voide d Speci men Type: Urine Speci men Date: 2023 10:34 AM Resul t Date: 024 11:18 AM Resul t Statu s: Final resul t Abnor mal: Yes Resul ting Lab: [facility] [address] [facility] [address] Tel: CULTU RE ----- ----- ----- --- >100, 000 CFU/m l Staph yloco ccus sapro phyti cus (Abno rmal) Staph yloco ccus sapro phyti cus typic ally respo nds to urine jacque ntrat ions of antim icrob ials used to treat acute , uncom plica michael urina ry tract infec tions (nitr ofura ntoin , trime thopr im/ricci lfame thoxa zole or fluro bo lones ). Not Available [facility] (Lab) [address], [place], [address], 06/13/2023 12:21:19 06/11/19 24 06/11/2023 urina lysis , dipst ick Leukocytes large trace Not Available [place] [address], [place], [address], 06/11/2023 10:21:34 06/11/19 24 06/11/2023 urina lysis , dipst ick Protein trace Not Available [place] [address], [place], [address], 06/11/2023 10:21:34 06/11/19 24 06/11/2023 urina lysis , dipst ick Blood +++ Not Available [place] [address], [place], [address], 06/11/2023 10:21:34 04/27/19 25 04/27/2024 WOMEN 'S HEALT H SWAB, GAURANG bacterial vaginosis (bv), tma Negati ve negati ve This test detec ts ribos omal RNA from bacte jhonny assoc iated with bacte rial vagin osis (BV), inclu ding Lacto bacil omer (L. gasse ri, L. crisp atus and L. jense dahlia), Gardn erell a vagin broderick, and Atopo bium vagin ae by Trans cript ion-M ediat ed Ampli ficat ion (TMA) . A singl e quali tativ e resul t is repor michael based on instr ument softw are to deter mine BV posit tyra or negat tyra statu s. Not Available [facility] (Lab) [address], [place], [address], 04/28/2024 14:30:13 04/27/19 25 04/27/2024 WOMEN 'S HEALT H SWAB, GAURANG damion species, tma Negati ve negati ve Not Available [facility] (Lab) [address], [place], [address], 04/28/2024 14:30:13 04/27/19 25 04/27/2024 WOMEN 'S HEALT H SWAB, GAURANG damion glabrata, tma Negati ve negati ve Not Available [facility] (Lab) [address], [place], [address], 04/28/2024 14:30:13 04/27/19 25 04/27/2024 WOMEN 'S HEALT H SWAB, GAURANG trichomonas vaginalis, tma Negati ve negati ve This assay tests for and diffe yonny milton en Marilou da glabr addison, the Marilou da speci es group (C. albic ans, C. tropi calis , C. parap brianda is, C. dubli niens is), and Trich omona s vagin broderick by Trans cript ion-M ediat ed Ampli ficat ion (TMA) . Not Available [facility] (Lab) [address], [place], [address], 04/28/2024 14:30:13 Result Notes None recorded. Problems Name Problem SNOMED Code Status Onset Date Resolution Date Notes Provider Name and Address Organization Details Recorded Time Past pregnanc y history of section [id number] Completed 11/22/19 rpt c/s Ana Rodriguez [facility], [facility] 0 16:33:07 Secondar y amenorrh ea [id number] Active 2019 Secondar y amenorrh ea;Pract ice ID: [id number] Not Available [facility] [facility] 0 21:40:06 Pregnanc y detectio n examinat ion Active 2019 Encounte r for pregnanc y test, result positive ;Practic e ID: 0001 Not Available [facility] 0 21:40:07 Gestatio n period, 10 weeks 27869293 Active 2019 10 weeks gestatio n of pregnanc y;Practi ce ID: 0001 Not Available [facility] 0 21:40:07 Antenata l screenin g Active 2019 Encounte r for antenata l screenin g for nuchal transluc ency;Pra ctice ID: 0001 Not Available [facility] 0 21:40:07 Normal pregnanc y in multigra thad [id number] 55644 Active 2019 Encounte r for suprvsn of normal pregnanc y, first trimeste r;Practi ce ID: 0001 Not Available [facility] 0 21:40:07 Antenata l screenin g for malforma tion Active 2019 Encounte r for antenata l screenin g for malforma tions;Pr actice ID: 0001 Not Available [facility] 0 21:40:07 Gestatio nal diabetes mellitus 43664977 Active 2015 Gestatio nal diabetes mellitus in pregnanc y, unsp control; Recorded Elsewher e: No Locat ion: Emymarshall hanson [facility] S ource: EHR Undergraduate Internship pantera: N uZhairti ce ID: 0001 Saud lable Time: 02:00:00 PM Not Available [facility] 0 21:40:07 Single liveborn born in hospital by section 794482376 Active 2015 Single liveborn delivere d by c section; Recorded Elsewher e: No Locat ion: Crystal kaci [facility] S ource: EHR Undergraduate Internship apntera: N Zuhairti ce ID: 0001 Saud lable Time: 08:45:00 AM Not Available [facility] 0 21:40:07 Pregnanc y, childbir th and puerperi um finding Active 2015 Encounte r for supervis ion of normal first pregnanc y, third trimeste r;Record ed Elsewher e: No Locat ion: Aga hanson [facility] S ource: EHR Undergraduate Internship pantera: N Zuhairti ce ID: [id number] Saud lable Time: 03:45:00 PM Not Available [facility] 0 21:40:07 Batsheva ry postpart um mood disturba nce 91801552 Active 2016 Postpart um mood disturba nce;Olman rded Elsewher e: No Locat ion: Emymarshall kaci [facility] S ource: EHR Undergraduate Internship pantera: N Practi ce ID: [id number] Saud lable Time: 03:00:00 PM Not Available [facility] 0 21:40:[address] Concept Completed 201605/21/2020 Encntr for trust officer exam (general ) (routine ) w/o abn findings ;Recorde d Elsewher e: No Locat ion: Aga hanson [facility] S ource: EHR Undergraduate Internship pantera: N Practi ce ID: [id number] Saud lable Time: 03:00:00 PM Braxton Patel MD [address], [place], [address], [facility] 1 14:48:43 Gestatio n period, 8 weeks 34736952 Active 2019 8 weeks gestatio n of pregnanc y;Record ed Elsewher e: No [facility] S ource: EHR Undergraduate Internship pantera: N Practi ce ID: 0001 Saud lable Time: 04:00:00 PM Not Available [facility] 0 21:40:08 Gestatio n period, 24 weeks 849101897 Active 2015 24 weeks gestatio n of pregnanc y;Record ed Elsewher e: No Locat ion: [facility] S ource: EHR Undergraduate Internship pantera: N Practi ce ID: 0001 Saud lable Time: 11:00:00 AM Not Available [facility] 0 21:40:08 Gestatio n period, 35 weeks 38684923 Active 2015 35 weeks gestatio n of pregnanc y;Record ed Elsewher e: No Locat ion: [facility] S ource: EHR Undergraduate Internship pantera: N Practi ce ID: [id number] Saud lable Time: 03:30:00 PM Not Available [facility] 0 21:40:08 Gestatio n period, 32 weeks 0766342 Active 2015 32 weeks gestatio n of pregnanc y;Record ed Elsewher e: No Locat ion: [facility] S ource: EHR Undergraduate Internship pantera: N Practi ce ID: [id number] Saud lable Time: 11:30:00 AM Not Available [facility] 0 21:40:08 Gestatio n period, 39 weeks 93907123 Active 2015 39 weeks gestatio n of pregnanc y;Record ed Elsewher e: No Locat ion: [facility] S ource: EHR Undergraduate Internship pantera: N Practi ce ID: [id number] Saud lable Time: 02:00:00 PM Not Available [facility] 0 21:40:08 Gestatio n period, 28 weeks 52580989 Active 2015 28 weeks gestatio n of pregnanc y;Record ed Elsewher e: No Locat ion: Aga hanson [facility] S ource: EHR Undergraduate Internship pantera: N Practi ce ID: 0001 Saud lable Time: 09:30:00 AM Not Available [facility] 0 21:40:08 Clinical finding Active 2015 Unspecif ied placenta l disorder , third trimeste r;Record ed Elsewher e: No Locat ion: Emychristopherseferino hanson [facility] S ource: EHR Undergraduate Internship pantera: N Practi ce ID: [id number] Saud lable Time: 11:30:00 AM Not Available [facility] 0 21:40:[address] Concept Completed 201505/21/2020 Decrease d movement s, third trimeste r, unsp;Rec orded Elsewher e: No Locat ion: Emychristopherseferino hanson [facility] S ource: EHR Undergraduate Internship pantera: N Practi ce ID: [id number] Saud lable Time: 04:00:00 PM Braxton Patel MD [address], [place], [address], [facility] 1 14:48:47 Pregnanc y, childbir th and puerperi um finding Active 2015 Encounte r for supervis ion of normal first pregnanc y, first trimeste r;Record ed Elsewher e: No Locat ion: E[facility]opher[facility]ferino h[facility] S ource: EHR Undergraduate Internship pantera: N Practi ce ID: 0001 Saud lable Time: 02:00:00 PM Not Available [facility] 0 21:40:09 Hemorrha gic complica tion of pregnanc y 646871425 Active 2019 Other hemorrha ge in early pregnanc y;Record ed Elsewher e: No Locat ion: Aga hanson [facility] S ource: EHR Undergraduate Internship pantera: N Practi ce ID: [id number] Saud lable Time: 04:00:00 PM Not Available [facility] 0 21:40:09 Lochia finding Active 2015 Encounte r for routine postpart um follow-u p;Record ed Elsewher e: No Locat ion: Aga hanson [facility] S ource: EHR Undergraduate Internship pantera: N Practi ce ID: 0001 Saud lable Time: 11:45:00 AM Not Available [facility] 0 21:40:10 Pregnanc y, childbir th and puerperi um finding Active 2015 Encounte r for supervis ion of normal first pregnanc y, second trimeste r;Record ed Elsewher e: No Locat ion: Aga hanson [facility] S ource: EHR Undergraduate Internship pantera: N Practi ce ID: [id number] Saud lable Time: 09:15:00 AM Not Available [facility] 0 21:40:10 Clinical finding Active 2015 Unspecif ied placenta l disorder , second trimeste r;Record ed Elsewher e: No Locat ion: Aga hanson [facility] S ource: EHR Undergraduate Internship pantera: N Practi ce ID: 0001 Saud lable Time: 11:00:00 AM Not Available [facility] 0 21:40:10 Threaten ed miscarri age 53107734 Active 2018 Threaten ed ;Recorde d Elsewher e: No Locat ion: Aga hanson [facility] S ource: EHR Undergraduate Internship pantera: N Practi ce ID: 0001 Saud lable Time: 08:45:00 AM Not Available [facility] 0 21:40:11 Screenin g for malignan t neoplasm of cervix Active 2016 Screenin g for cervical ca;Recor ded Elsewher e: No Locat ion: Aga hanson [facility] S ource: EHR Undergraduate Internship pantera: N Practi ce ID: 0001 Saud lable Time: 03:00:00 PM Not Available [facility] 0 21:40:11 Gestatio n period, 38 weeks 22740038 Active 2015 38 weeks gestatio n of pregnanc y;Practi ce ID: 0001 Not Available [facility] 0 21:40:13 Prematur e rupture of membrane s 85500737 Active 2015 Bahman ROM, 7th0 betw rupt & onst labr, unsp weeks of gest;Pra ctice ID: 0001 Not Available [facility] 0 21:40:14 Head not engaged 01059302 Active 2015 Maternal care for high head at term, not applicab le or unsp;Pra ctice ID: 0001 Not Available [facility] 0 21:40:14 Procedur e on genitour inary system Active 2018 Encounte r for surgical aftercar e followin g surgery on the genitour inary system;R ecorded Elsewher e: No Locat ion: [facility] S ource: EHR Undergraduate Internship pantera: N Practi ce ID: 0001 Saud lable Time: 02:00:00 PM Not Available [facility] 0 21:40:14 Postoper ative care Active 2018 Encounte r for surgical aftercar e followin g surgery on the genitour inary system;R ecorded Elsewher e: No Locat ion: Aga e [facility] S ource: EHR Undergraduate Internship pantera: N Practi ce ID: [id number] Saud lable Time: 02:00:00 PM Not Available [facility] 0 21:40:14 Missed miscarri age 42364131 Active 2018 Missed ;Recorde d Elsewher e: No Locat ion: [facility] S ource: EHR Undergraduate Internship pantera: N Practi ce ID: 0001 Saud lable Time: 09:30:00 AM Not Available [facility] 0 21:40:16 Failed medical inductio n of labor 44434333 Active 2015 Failed medical inductio n of labor;Pr actice ID: 0001 Not Available [facility] 0 21:40:16 Single live 333471525 Active 2015 Single live ;Pr actice ID: 0001 Not Available [facility] 0 21:40:16 Gestatio n period, 40 weeks 35092177 Active 2015 40 weeks gestatio n of pregnanc y;Practi ce ID: 0001 Not Available [facility] 0 21:40:16 Pregnanc y 64054530 Completed 201902/01/2020 Ana Rodriguez [facility] 0 16:33:11 Notes:Puerperal psychosis Pr actice ID: 0001 Encounter for screening of mother Recorded Elsewhere: No Location: [facility] Source: EHR Chronic: N Practice ID: 0001 Billable Time: 08:15:00 AM Encounter for screening of mother Practice ID: 0001 Problem Notes None recorded. Procedures Surgical History Date Name Laterality Status Provider Name and Address Organization Details Recorded Time 04/24/19 24 Date of Last Pap Smear completed Cathy Alexander [facility] 06/11/2023 09:57:54 04/23/19 21 IUD Insertion completed Braxton Patel MD [address], [place], [address], [facility] 04/23/2020 16:44:34 04/13/19 20 section completed Criselda Montes [facility] 04/24/2023 10:28:23 08/11/19 19 Dilation and Curettage completed Hilaria Key [facility] 11/15/2019 14:12:21 12/13/19 16 delivery completed Barbara Douglas [facility] 09/06/2019 13:33:31 04/13/18 99 appendectomy completed Hilaria Key [facility] 11/15/2019 14:12:09 Imaging Results None recorded. Procedure Notes None recorded. Medical Equipment None Reported. Allergies Allergen ID Allergen Name Allergen Category Reaction Reaction Severity Criticality Documentation Date Start Date Code Code System Note Provider Name and Address Organization Details Recorded Time 724 Product containin g penicilli n and antibioti c (product) medicatio n Not available Not available Not available 09/06/2019 12834 05 SNOMED Barbara hagan [facility] 0 13:32:28 Medications Name Sig Start Date Stop Date Status Note LastModified by Organization Details LastModified Time Mirena 21 mcg/24 hr (up to 8 years) 52 mg intrauter ine device Take by intraute rine route. 2020 active Not Available Not Available Not Avai lable cetirizin e 10 mg tablet TAKE 1 TABLET BY MOUTH EVERY MORNING completed Not Available Not Available Not Available azithromy angela 250 mg tablet TAKE 2 TABLETS BY MOUTH FOR 1 DAY THEN TAKE 1 TABLET BY MOUTH DAILY FOR 4 DAYS 04/24 completed Not Available Not Available Not Available cetirizin e 5 mg tablet take 1 tablet by oral route every day 05/16 completed Prescrib ed Elsewher e: Yes Loca tion: [facility] odify By: [email or web address] z Autumn arguello DateTime : 05/04/19 16 01:00:00 PM Not Available Not Available Not Available fluconazo le 150 mg tablet Take 1 tablet by oral route for 1 day. 2024 active Not Available Not Available Not Avai lable benzonata te 200 mg capsule TAKE 1 CAPSULE BY MOUTH THREE TIMES DAILY NEEDED 04/24 completed Not Available Not Available Not Available hydrocodo ne 5 mg-acetam inophen 325 mg tablet 04/19 completed Not Available Not Available Not Available sertralin e 100 mg tablet TAKE 1 TABLET BY MOUTH EVERY DAY 04/24 completed Not Available Not Available Not Available methylphe nidate ER 10 mg tablet,ex tended release TAKE 1 TABLET BY MOUTH EVERY DAY IN THE MORNING FOR 14 DAYS 04/27 completed Not Available Not Available Not Available cosyntrop in 0.25 mg solution for injection INJECT 1 ML INTO THE MUSCLE INSTRUCT ED ONCE completed Not Available Not Available Not Available metronida zole 500 mg tablet 04/27 completed Not Available Not Available Not Available Nortrel 1/35 (28) 1 mg-35 mcg tablet TK 1 T PO QD 04/23 completed Not Available Not Available Not Available Nortrel 1/35 (21) 1 mg-35 mcg tablet Take 1 tablet(s ) every day by oral route. 04/19 completed Not Available Not Available Not Available methylphe nidate ER 20 mg tablet,ex tended release TAKE 1 TABLET BY MOUTH EVERY DAY IN THE MORNING active Not Available Not Available No t Available dextroamp hetamine- amphetami ne ER 10 mg 24hr capsule,e xtend release active Not Available Not Available Not Available Vitamin D2 1,250 mcg (50,000 unit) capsule take 1 capsule by oral route every week 12/30 completed Prescrib ed Elsewher e: No Locat ion: Aga hanson [facility] odify By: [email or web address] DateTime : 06/18/19 16 02:40:56 PM Not Available Not Available Not Available sertralin e 50 mg tablet TAKE 1 TABLET BY MOUTH EVERY DAY 04/24 completed Not Available Not Available Not Available loratadin e 10 mg tablet take 1 tablet by oral route every day 04/19 completed Prescrib ed Elsewher e: Yes Loca tion: Aga hanson [facility] odify By: [email or web address] Encount er DateTime : 04/20/19 03:00:00 PM Not Available Not Available Not Available nitrofura ntoin monohydra te/macroc rystals 100 mg capsule TAKE 1 CAPSULE BY MOUTH EVERY 12 HOURS FOR 7 DAYS 04/27 completed Not Available Not Available Not Available 04/19 completed Not Available Not Available Not Available Multivita min 50 Plus active Not Available Not Available Not Available Fish Oil 300 mg capsule 01/20 completed Prescrib ed Elsewher e: Yes Loca tion: Crystal kaci [facility] odify By: [email or web address] DateTime : 05/04/19 16 01:00:00 PM Not Available Not Available Not Available + DHA 28 mg iron-975 mcg-200 mg oral pack take 1 tablet by by mouth route every day 12/10 completed Prescrib ed Elsewher e: No Locat ion: [facility] odify By: [email or web address] arguello DateTime : 07/15/19 17 03:02:26 PM Not Available Not Available Not Available 28 mg iron-800 mcg tablet 04/19 completed Prescrib ed Elsewher e: Yes [facility] By: [email or web address] Encount er DateTime : 04/20/19 03:00:00 PM Not Available Not Available Not Available [employer]-PNV-DH A 28 mg iron-1 mg-200 mg capsule take 1 capsule by oral route every day 08/18 completed Prescrib ed Elsewher e: No Locat ion: Aga hanson [facility] odify By: [email or web address] Encounte r DateTime : 07/28/19 09:24:34 AM Not Available Not Available Not Available Womens Daily Gummies 200 mcg chewable tablet 04/20 completed Prescrib ed Elsewher e: Yes Loca tion: Aga hanson [facility] odify By: [email or web address] Encount er DateTime : 08/19/19 02:00:00 PM Not Available Not Available Not Available Allergy 25 mg tablet take 2 tablet by oral route every 4 - 6 hours as needed 04/20 completed Prescrib ed Elsewher e: Yes Loca tion: Aga hanson [facility] odify By: [email or web address] Encount er DateTime : 08/19/19 02:00:00 PM Not Available Not Available Not Available One Daily 27 mg iron-800 mcg tablet take 1 tablet by oral route every day 08/18 completed Prescrib ed Elsewher e: Yes Loca tion: Aga hanson [facility] odify By: [email or web address] Encounte r DateTime : 12/19/19 10:54:55 AM Not Available Not Available Not Available Vitals Date Recorded Body weight Body mass index (BMI) Body height Systolic blood pressure Diastolic blood pressure Provider Name and Address Organization Details Last Updated DateTime 04/24/2023 10205.86 g 27.4 kg/m2 157.48 cm 105 mm[Hg] 74 mm[Hg] Criselda Montes [facility] 10:25:42 Date Recorded Body height Body mass index (BMI) Body weight Systolic blood pressure Diastolic blood pressure Provider Name and Address Organization Details Last Updated DateTime 06/11/2023 157.48 cm 27.6 kg/m2 28759.45 g 107 mm[Hg] 74 mm[Hg] Cathy Alexander [facility] 4 10:19:22 Date Recorded Body height Body mass index (BMI) Body weight Systolic blood pressure Diastolic blood pressure Provider Name and Address Organization Details Last Updated DateTime 04/27/2024 157.48 cm 26.4 kg/m2 00555.74 g 132 mm[Hg] 74 mm[Hg] Zhane Ragsdale [facility] 5 10:35:15 Date Recorded Body height Body mass index (BMI) Body weight Systolic blood pressure Diastolic blood pressure Provider Name and Address Organization Details Last Updated DateTime 04/23/2020 157.48 cm 27.6 kg/m2 52507.45 g 114 mm[Hg] 78 mm[Hg] July [facility] 1 11:50:47 Date Recorded Body height Body mass index (BMI) Body weight Systolic blood pressure Diastolic blood pressure Provider Name and Address Organization Details Last Updated DateTime 05/21/2020 157.48 cm 27.8 kg/m2 99508.04 g 123 mm[Hg] 72 mm[Hg] July [facility] 1 12:38:57 Social History Question Answer Notes LastModified by Organizat ion Details LastModified Time Tobacco Smoking Status Never Smoker Not Available [facility] 02/14/2020 03:28:11 What Is Your Level Of Alcohol Consumption? Occasional [id number] Information not available 02/14/2020 If You Are , What Was Your Level Of Alcohol Consumption Prior To ? None [id number] Information not available 02/14/2020 How Many Years Have You Consumed Alcohol? 15 Information not available 06/11/2023 Are You Blind Or Do You Have Difficulty Seeing? No Information not available 04/24/2023 What Is Your Level Of Caffeine Consumption? Occasional Information not available 04/24/2023 How Much Tobacco Do You Chew? None Information not available 06/11/2023 In The 14 Days Before Symptom Onset, Have You Had Close Contact With A Laboratory-confir med COVID-19 While That Case Was Ill? No Information not available 06/11/2023 In The 14 Days Before Symptom Onset, Have You Had Close Contact With A Person Who Is Under Investigation For COVID-19 While That Person Was Ill? No Information not available 06/11/2023 Have You Been To An Area Known To Be High Risk For COVID-19? No Information not available 06/11/2023 Are You Deaf Or Do You Have Serious Difficulty Hearing? No Information not available 04/24/2023 What Type Of Diet Are You Following? REGULAR Information not available 06/11/2023 Do You Or Have You Ever Used E-cigarettes Or Vape? Never Used Electronic Cigarettes [id number] Information not available 02/14/2020 What Is The Highest Grade Or Level Of School You Have Completed Or The Highest Degree You Have Received? 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 No Information not available 06/11/2023 What Was The Date Of Your Most Recent Tobacco Screening? 11/15/2019 [id number] Information not available 02/14/2020 Do You Use Protection During Sex? No Information not available 06/11/2023 Do You Use Your Seat Belt Or Car Seat Routinely? Yes Information not available 06/11/2023 Do You Have Smoke And Carbon Monoxide Detectors In Your Home? Yes Information not available 06/11/2023 Do You Or Have You Ever Used Smokeless Tobacco? Never Used Smokeless Tobacco [id number] Information not available 02/14/2020 How Much Tobacco Do You Smoke? No [id number] Information not available 02/14/2020 Smoking Pre- No [email or web address] Information not available 11/15/2019 Do You Feel Stressed (tense, Restless, Nervous, Or Anxious, Or Unable To Sleep At Night)? [id number] Information not available 06/11/2023 Do You Use Any Illicit Or Recreational Drugs? No Information not available 06/11/2023 Do You Use Sunscreen Routinely? Yes Information not available 06/11/2023 Have You Used IV Drugs? No Information not available 06/11/2023 Sex: Unknown Functional Status Question Answer Note LastModified by Organizat ion Details LastModified Time Do you have difficulty walking or climbing stairs? No Information not available 04/24/2023 Are you able to walk? YESWOREST Information not available 04/24/2023 Are you able to care for yourself? Yes Information not available 04/24/2023 Do you have difficulty dressing or bathing? No Information not available 04/24/2023 What is your exercise level? Occasional [id number] Information not available 02/14/2020 Mental Status None recorded. Family History Relationship Description Onset Age of this Age Resolved Age Notes LastModified by Organization Details LastModified Time Mother Disorder of thyroid gland [email or web address] Not available 2019 13:34:19 Father Carcinoma in situ of lung [email or web address] Not available 10:26:06 Father Carcinoma in situ of testis Not available 2024 10:26:06 Paternal Grandmother Carcinoma of breast [email or web address] Not available 2024 10:26:06 Maternal Grandmother Diabetes mellitus [email or web address] Not available 2019 13:35:18 Maternal Aunt Carcinoma of uterine cervix, invasive [email or web address] Not available 2024 10:26:06 Medical History Condition Response Allergies (Food, seasonal, environmental ) N Other N Breast Cancer N Drug/Latex Allergies/Reactions N Blood Transfusion N Dermatologic Disorders N Lung Disease N Defects or Inherited Disease N Breast Problem N Gestational Diabetes N Hematologic disorders N Anesthesia Complications N History of STI N Deep Vein Thrombosis N Polycystic ovary syndrome N Anxiety Disorder N Autoimmune disease N Arthritis N Infertility N Polyps N Acid Reflux (GERD) N History of abnormal pap N Cancer N Stroke N Varicosities N Neurologic/Epilepsy N Endometriosis N High Cholesterol N Headaches N Fibromyalgia N Kidney Disease N Heart Problems N Kidney or Bladder Problems N Thyroid Problems N GI Problems N Eating Disorder N Anemia N Art (IVF or FET) N Psychiatric Illness N Ovarian Cancer N Diabetes N Pulmonary (TB, Asthma) N Hepatitis/Liver Disease N No Past Medical History N Eczema N Urinary Tract Infection N Abuse/Domestic Violence N Asthma Y Trauma/Violence N Depression/ depression Y Heart Disease N Pre-Eclampsia N Hypertension N Osteoporosis N Thrombophilias N Gynecological History Statement/Question Response Date of LMP 03/18/2020 On BCP's at Conception? N N Was last menstrual period normal Y STIs/STDs N HPV Vaccine Y Duration of Flow (days) 0 Current Control Method IUD Age at First Child 30 Frequency of Cycle (Q days) 0 Sexually Active? Y Menses Monthly N Age of first menstrual cycle 14 Date of Last Pap Smear 04/24/2023 Sexual Problems? N LMP Approximate N Obstetrics History GPAL:G 3 P 2 0 1 2 Type Value Full Term 2 Spontaneous 1 Living 2 Total 3 Past Encounters Encounter ID Performer Location Encounter Start Date Encounter Closed Date Diagnosis/Indication Diagnosis SNOMED-CT Code Diagnosis ICD10 Code Diagnosis Note [id number] Braxton Patel MD [facility] [address],[place] [address] 09/06/2019 11:48:52 09/06/2019 12:09:20 Routine care 042913029 Z34.[id number] [facility] [address],[place] [address] 09/19/2019 09:59:51 09/19/2019 18:12:50 Routine care 964904573 Z34.[id number] [facility] [address],[place] [address] 10/03/2019 09:48:44 10/03/2019 16:24:44 [id number] Braxton Patel MD [facility] [address],[place] [address] 10/18/2019 09:41:01 10/18/2019 11:00:26 Routine care 033547034 Z34.83 [id number] Viri Castro CNM [facility] [address] [place] [address] 11/01/2019 09:28:24 11/01/2019 10:49:41 Routine care 035527491 Z34.83 [id number] Viri Castro CNM [facility] [address] [place] [address] 11/08/2019 14:14:40 11/08/2019 15:28:19 Routine care 252345548 Z34.83 [id number] Viir Castro CNM [place] [address],[place] [address] 11/15/2019 13:43:01 11/15/2019 14:27:29 Routine care [id number] Z34.93 [id number] Braxton Patel MD [facility] - [address] [facility] [place], [place] [address] [place] [address] 11/23/2019 09:49:58 11/23/2019 09:53:42 [id number] Braxton Patel MD [place] [address],[place] [address] 11/29/2019 10:35:23 11/29/2019 11:33:07 Postoperative care [id number] Z48.89 This patient is a 34-year-ol d female presents forpostopf ollow-up. She is 1 weekpostop from a delivery. She is recovering normally. Her incision is clean dry and intact. We discussed a series of questions you prepared. She will follow up in 3 weeks. [id number] Braxton Patel MD [place] [address],[place] [address] 12/20/2019 14:12:20 12/20/2019 14:50:34 care [id number] Z39.2 [id number] Braxton Patel MD [place] [address],[place] [address] 04/19/2020 09:53:13 04/19/2020 11:01:23 Routine gynecologic examination done [id number] 9101 Z01.419 This patient is here for her annual exam. A thorough history was taken. A physical exam was performed. Age appropriat e routine health screening was ordered, performed, and discussed. Recommende d testing was ordered. She was asked to follow up in one year. She will be informed of any test results. Pap - today Gynecologi c examination [id number] Z01.419 [id number] Braxton Patel MD [place] [address],[place] [address] 04/23/2020 11:28:58 04/24/2020 14:23:51 Contraception care management [id number] Z30.9 IUD insertion was performed without complicati ons. She tolerated the procedure well. [id number] Braxton Patel MD [place] [address],[facility] [address] 05/21/2020 12:31:43 05/21/2020 15:11:12 Contraception care management [id number] Z30.9 IUD insertion was performed without complicati ons. She tolerated the procedure well. depression [id number] F53.0 This patient is a 35-year-ol d who presents for IUD check. She has no complaints . She was examined with a speculum. The cervix appears normal, the IUD string appears normally placed, the IUD was not visible. She will follow up as needed. patient I also discussed her medical management of depression . Patient's mood is improved. She is interested in tapering the medication . We discussed in approach to tapering down from Zoloft 100 mg to 50 mg. she will be prescribed 50 mg tablets. She will use the 50 mg tablets 2 months and then discontinu e the medication . [id number] [facility] [address],[facility] [place] [address] 04/24/2023 10:12:32 04/24/2023 13:31:41 Gynecologic examination [id number] Z01.419 Z11.51 Take Calcium with Vitamin D 1200mg daily if not receiving in daily diet. It is strongly advised to have an annual flu shot and up can obtain at most pharmacies . If you have not had a TDap shot in the last 10 years you should obtain one as well. Discussed with patient & provided with informatio n regarding Gardisil vaccine to prevent the 4 strains for HPV that cause cervical cancer if under age 26. Encourage safe sexual practices, to use condoms and limit partners if not already in a monogamous relationsh ip. Do monthly self breast exams. Have mammogram yearly or every other year depending on family history. BRCA testing is now available for patients with strong genetic history of female cancer. If interested contact the office. Engage in daily exercise of low impact aerobic exercise 45-60 minutes 4-5 times weekly. Avoid tobacco and illicit drugs as well as using moderation with alcohol intake less than 1-2 8 oz beverages daily. This lifestyle behavior pattern will lead to less health conditions and longer life span. If BMI greater than 25 weight watchers or dietary consult advised. Patient received above instructio ns, and questions have been answered. If you have any questions please call or respond to this email. Patient was made aware of the patient portal and may obtain a paper copy of today's plan if desired. Pap/hpv sent STD Screen declined Genetic Screen discussed Colon Screen na Dexa Screen na Routine Labs PCP A Mirena IUD prevents for up to 8 years, and also helps with heavy periods for up to 5 years in women who choose an IUD for control. [id number] SHANDRA Barker [place] [address],[facility] [address] 06/11/2023 10:11:03 06/11/2023 10:34:12 Urinary symptoms [id number] R39.9 suspect UTIrx sent - r/b/a reviewedur ine cx sent - will update pt with results when availablep recautions reviewed Time spent in visit is a total of 15 mins with at least 50% of visit consisting of counseling and review of plan of care. [id number] DONNA CHERY NP [place] [address],[facility] [address] 04/27/2024 10:25:53 04/27/2024 12:36:34 Gynecologic examination [id number] Z01.419 Annual gynecologi preet exam performed. Patient will come back in a year unless there are new symptoms. Suggest Calcium with Vitamin D if not eating in diet. Patient advised to get annual flu shot. Recommend yearly physicals and perform monthly breast exams. Genetic testing is available for patients with family history of cancer. Engage in safe sexual practices, use condoms. Encouraged to have daily exercise. Avoid tobacco and illicit drugs, moderation of alcohol. If BMI greater than 25 dietary consult advised. If you have any questions please call or email. Mammogram - Due at age 41; Genetic screening discussed d/t FH of breast cancer. Pap smear- UTD (2023 - WNL), will repeat in 2026 per ASCCP guidelines . laboratory evaluation - PCP STI testing - declined Vaginal discharge [id number] 006 N89.8 Discussed empirical treatment with fluconazol e for suspected yeast infection based on reported symptoms and physical exam findings.D iscussed vulvar care guidelines in addition to laundry/sk in irritants to avoid.Vagi nitis sent to confirm infection. Pain in pelvis [id number] R10.2 Vaginitis panel sentPt to call if pelvic pain returns/wo rsens as pelvic u/s will be warranted to evaluate to other potential causes of painDiscus sed that IUD strings were intact/vis ibleRecomm ended daily miralax for constipati on Health Concerns Section Related Observation LastModified by Organization Detai ls LastModified Time None Recorded Concern Status LastModified by Organization Details LastModified Time None Recorded Advance Directives Directive None Recorded Payers Encounter Date Sequence Insurance Name Policy Number Policy Porter Covered Member ID Porter Member ID Guarantor Name 04/23/2020 1 [employer] - DOS PRIOR TO 20 - [facility] [employer] Nohemy L Eugene [id number] Nohemy L Eugene 05/21/2020 1 [employer] - DOS PRIOR TO 20 - [facility] [employer] Nohemy L Eugene [id number] Nohemy L Eugene 04/24/2023 1 [employer] - [facility] [employer] [id number] Nohemy L Eugene [id number] [id number] Nohemy L Eugene 06/11/2023 1 [employer] - [facility] [employer] [id number] Nohemy L Eugene [id number] OI Nohemy L Eugene 04/27/2024 1 [place] [id number] Nohemy L Eugene [id number] Nohemy L Eugene Notes Date Note Type Note Provider Name and Address Organization Details Recorded Time 04/23/2020 text/html Patient presents for IUD insertion. Braxton Patel MD [address], [place], [address], [facility] 04/23/2020 16:46:29 05/21/2020 text/html This patient is a 35-year-old who presents for IUD check. She has no complaints. She was examined with a speculum. The cervix appears normal, the IUD string appears normally placed, the IUD was not visible. She will follow up as needed. patient I also discussed her medical management of depression. Patient's mood is improved. She is interested in tapering the medication. We discussed in approach to tapering down from Zoloft 100 mg to 50 mg. she will be prescribed 50 mg tablets. She will use the 50 mg tablets 2 months and then discontinue the medication. Braxton Patel MD [address], [place], [address], [facility] 05/21/2020 14:53:01 04/24/2023 text/html Annual GYNReport ed bypatient.History:no gynecologic complaints Menstrual cycle:Normal menses Urinary symptoms:No hematuria; No incontinence Vulva:No genital lesion Vagina:Normal vaginal discharge Breast:No breast pain; No breast lump; No nipple discharge Sexual complaints:No sexual complaints; No pain during intercourse; Normal libido Menopausal Symptoms:No menopausal symptoms; Normal vaginal lubrication Psychological symptoms:No depression; No anxiety; No PMDD Preventive measures:Encourage self breast examination; Encourage regular exercise; Encourage no tobacco use; Encourage regular mammograms starting age 40; Followed with yearly pap smears SHANDRA De Anda-BC [address], [place], [address], [facility] 04/24/2023 13:27:03 06/11/2023 text/html 38yo [id number] ents for evaluation of urinary symptomssymptoms started yesterdayburning with urination, frequent urinationneg vaginal symptomsneg flank painsneg n/v/fmirena IUD for BC SHANDRA Barker [address], [place], [address], [facility] 06/11/2023 10:30:41 04/27/2024 text/html Annual GYNReport ed bypatient.Menstrual cycle:No cycles with IUD Urinary symptoms:No hematuria; No incontinence Vulva:No genital lesion Vagina:Normal vaginal discharge Breast:No breast pain; No breast lump; No nipple discharge Current Contraception:Satisfi ed with current contraception; Intrauterine device (iud) Sexual complaints:No sexual complaints; No pain during intercourse; Normal libido Menopausal Symptoms:No menopausal symptoms; Normal vaginal lubrication Psychological symptoms:No depression; No anxiety; No PMDD Preventive measures:Encourage self breast examination; Encourage regular exercise; Encourage no tobacco use; Encourage regular mammograms starting age 40 Patient presents for annual well woman exam.Patient reports intermittent right and left lower abdominal/pelvic pain that radiates to the back x a few weeks. Patient states that the pain has overall improved since seeing her PCP. Pt states that she was empirically treated by her PCP for possible BV infection due to pH imbalance noted in urine.Denies urinary frequency, urgency, dysuria, or hematuria.Patient states that she is occasionally constipated.Patient declines STI testing.Pt has Mirena IUD, denies having periods. DONNA CHERY, MALI [address], [place], [address], [facility] 04/27/2024 12:32:06 OBGyn Episode Ob Episode Information Episode Created Date Number of Fetuses Patient Bloodtype Patient rh Status Prepregnancy Weight lbs Domestic Partner Domestic Partner Phone Father Name Adjunct Professor Of Law Status 09/06/19 20 1 O Positive 141 CLOSED Fetus Data First Name Last Name Admitted to NICU Weight (g) Sex Living Outcome Pediatric Complications Fetus ID Race Codes Race Delivery Type Osmani false 3770.48 35 M Full Term 1706 Problems Problem Notes Problem Name Start Date End Date Resolution Snomed Code Not e Past history of section [id number] 11/22/19 rpt c/s Tomas Calculation Initial Tomas Date Initial Exam Date Initial Exam Provider Initial Ultrasound Date Last Menstrual Period Date Ultra Sound Weeks Gestation 11/27/2019 09/06/2019 04/20/2019 02/20/2019 8 Eighteen To Twenty Week Tomas Update Ultra Sound Date Fundal Height At Umbil Quickening Date Ultra Sound Latest Weeks Gestation Final Tomas Confirmed By Final Tomas Confirmed Date Final Tomas Date Ultra Sound Latest Days Gestation 0 [email or web address] 09/06/2019 11/27/19 20 0 Pre-daniel Flowsheet Flowsheet Date 09/06/2019 Cuello Score Blood Edema Fundus Height Fundus Units Glucose Ketones Leukocytes Nitrite Labor Signs Protein Cervic Dilation Cervic Effacement Cervic Station 28 trace Type Weight in lbs Pre/Post Dialysis Refused Weight 157.011186457424 BP Diastolic BP Location Tested BP Systolic BP Type 76 116 Fetus Heart Rate Present A 145 Fetus Movement A Yes Comments Flowsheet Date 09/19/2019 Cuello Score Blood Edema Fundus Height Fundus Units Glucose Ketones Leukocytes Nitrite Labor Signs Protein Cervic Dilation Cervic Effacement Cervic Station none 30 trace Type Weight in lbs Pre/Post Dialysis Refused Weight 159.099462671409 BP Diastolic BP Location Tested BP Systolic BP Type 70 102 sitting Fetus Heart Rate Present A 142 Fetus Movement A Yes Comments Pt doing well. Having a boy Osmani . Encouraged TDAP. Planning r/c/s. Will schedule after 32 week visit. Flowsheet Date 05/20/2019 Cuello Score Blood Edema Fundus Height Fundus Units Glucose Ketones Leukocytes Nitrite Labor Signs Protein Cervic Dilation Cervic Effacement Cervic Station trace 13 trace Type Weight in lbs Pre/Post Dialysis Refused Weight 139.483496044142 BP Diastolic BP Location Tested BP Systolic BP Type Fetus Heart Rate Present A 150 Fetus Movement A No Comments Patient is a 34-year-old fem javier presents for initial visit. She is a multiparous female with a previous delivery. She wants to do a repeat . Routine care. We talked about the mildly elevated but normal thickness on the of the nuchal fold. Flowsheet Date 06/20/2019 Cuello Score Blood Edema Fundus Height Fundus Units Glucose Ketones Leukocytes Nitrite Labor Signs Protein Cervic Dilation Cervic Effacement Cervic Station trace 17 trace Type Weight in lbs Pre/Post Dialysis Refused Weight 143.680284870669 BP Diastolic BP Location Tested BP Systolic BP Type 69 113 sitting Fetus Heart Rate Present A 160 Fetus Movement A Yes Comments Flowsheet Date 07/11/2019 Cuello Score Blood Edema Fundus Height Fundus Units Glucose Ketones Leukocytes Nitrite Labor Signs Protein Cervic Dilation Cervic Effacement Cervic Station none 21 trace Type Weight in lbs Pre/Post Dialysis Refused Weight 146.174773653052 BP Diastolic BP Location Tested BP Systolic BP Type 69 109 sitting Fetus Heart Rate Present A 150 Fetus Movement A Yes Comments /o heartburn so I advised us ing Pepcid or Zantac + Tums prn. Expecting baby boy Osmani plans to breastfeed and wants circumcision Flowsheet Date 10/03/2019 Cuello Score Blood Edema Fundus Height Fundus Units Glucose Ketones Leukocytes Nitrite Labor Signs Protein Cervic Dilation Cervic Effacement Cervic Station 32 trace Type Weight in lbs Pre/Post Dialysis Refused Weight 162.358573010733 BP Diastolic BP Location Tested BP Systolic BP Type 74 L arm 111 sitting Fetus Heart Rate Present A 156 Fetus Movement A Yes Comments Pt doing well. Occasional co ntractions. PTL precautions. Pt would like her c/s with Dr Patel the Thursday or Thursday prior to her due date. Will send task to schedule. Going to get TDAP today. Flowsheet Date 10/18/2019 Cuello Score Blood Edema Fundus Height Fundus Units Glucose Ketones Leukocytes Nitrite Labor Signs Protein Cervic Dilation Cervic Effacement Cervic Station 33 Type Weight in lbs Pre/Post Dialysis Refused Weight 166.527579805205 BP Diastolic BP Location Tested BP Systolic BP Type 73 109 Fetus Heart Rate Present A 145 Fetus Movement A Yes Comments Flowsheet Date 11/01/2019 Cuello Score Blood Edema Fundus Height Fundus Units Glucose Ketones Leukocytes Nitrite Labor Signs Protein Cervic Dilation Cervic Effacement Cervic Station 36 trace 0cm 60% -3 Type Weight in lbs Pre/Post Dialysis Refused Weight 171.021238620095 BP Diastolic BP Location Tested BP Systolic BP Type 73 115 Fetus Heart Rate Present A 144 Fetus Movement A Yes Comments +2 Glucose, GBS done, labor precautions reviewed Flowsheet Date 11/08/2019 Cuello Score Blood Edema Fundus Height Fundus Units Glucose Ketones Leukocytes Nitrite Labor Signs Protein Cervic Dilation Cervic Effacement Cervic Station 38 Type Weight in lbs Pre/Post Dialysis Refused Weight 174.73588588813 BP Diastolic BP Location Tested BP Systolic BP Type 70 104 Fetus Heart Rate Present A 142 Fetus Movement A Yes Comments pt very upset and tearful ab out wait times, reassured about care, will have her f/u with sp right after lunch for quicker visitlabor precautions, GBS +, allergic to PCN Flowsheet Date 11/15/2019 Cuello Score Blood Edema Fundus Height Fundus Units Glucose Ketones Leukocytes Nitrite Labor Signs Protein Cervic Dilation Cervic Effacement Cervic Station neg trace trace Type Weight in lbs Pre/Post Dialysis Refused Weight 173.859258938923 BP Diastolic BP Location Tested BP Systolic BP Type 68 104 Fetus Heart Rate Present A 155 Present Fetus Movement A Yes Comments patient is having some pelvi c pain, pressure, contractions, discharge, swelling, and heartburn, labor precautions reviewed sections Flowsheet Date 11/22/2019 Cuello Score Blood Edema Fundus Height Fundus Units Glucose Ketones Leukocytes Nitrite Labor Signs Protein Cervic Dilation Cervic Effacement Cervic Station Type Weight in lbs Pre/Post Dialysis Refused BP Diastolic BP Location Tested BP Systolic BP Type Fetus Heart Rate Present Fetus Movement Comments Flowsheet Date 11/29/2019 Cuello Score Blood Edema Fundus Height Fundus Units Glucose Ketones Leukocytes Nitrite Labor Signs Protein Cervic Dilation Cervic Effacement Cervic Station Type Weight in lbs Pre/Post Dialysis Refused Weight 166.763637340791 BP Diastolic BP Location Tested BP Systolic BP Type 78 120 Fetus Heart Rate Present Fetus Movement Comments Flowsheet Date 12/20/2019 Cuello Score Blood Edema Fundus Height Fundus Units Glucose Ketones Leukocytes Nitrite Labor Signs Protein Cervic Dilation Cervic Effacement Cervic Station Type Weight in lbs Pre/Post Dialysis Refused Weight 156.517319922606 BP Diastolic BP Location Tested BP Systolic BP Type 73 105 Fetus Heart Rate Present Fetus Movement Comments Menstrual History Last Menstrual Date Menses Monthly On Bcp Conception Prior Menses Frequency Hcg Plus Date Menarche Onset Age 1102/20/2019 Genetic Screening And Infection History Question Response Note Mental Retardation/Autism false Patient's Age Will Be 35 Years Or Older At Estim ated Date of Delivery false Thalassemia (Liberian, Slovenian, Mediterranean, Or Background): MCV < 80 false Neural Tube Defect (Meningomyelocele, Spina Bifi da, Or Anencephaly) false Congenital Heart Defect false Down Syndrome false Ant-Sachs (eg, Catholic, Cajun, Turkish-Sweet Grass) f alse Margaux Disease false Sickle Cell Disease Or Trait () false Hemophilia Or Other Blood Disorders false Muscular Dystrophy false Cystic Fibrosis false [place]'s Chorea false Intellectual Disability/Autism false If Yes, Was Person Tested For Fragile X? false Other Inherited Genetic Or Chromosomal Disorder false Maternal Metabolic Disorder (eg, Type 1 Diabetes , PKU) false Patient Or Baby's Father Had A Child With Defects Not Listed Above false Recurrent Loss, Or A Stillbirth false Medications (including Suppl ements, Vitamins, Herbs, OTC Drugs), Illicit/Recreational Drugs, Alcohol false If Yes, Agent(s) And Strength/Dosage false Any Other Genetic History false Live With Someone With TB Or Exposed To TB false Patient Or Partner Has History Of Genital Herpes false Rash Or Viral Illness Since Last Menstrual Perio d false History Of STD, Gonorrhea, Chlamydia, HPV, Syphi lis false Other Infection History false History of HIV false History of Hepatitis false Prior GBS-infected child false Hemoglobinopathy Or Carrier false Other Structural Defect false Recent Travel History Outside of Country false Delivery Information Delivery Date Delivery Type Labor Anesthesia Weeks Gestation Incision Type Labor Labor Length Hrs Delivered By Post Complications Tubal Sterilization Discharge Date Comments 0 None Regional-Sp inal 39.2 Low Transvers e [email or web address] false No bleeding, no sex, mood-star michael zoloft, anxiety, to see counselor , didn't want to increase dose of meds, stable Discharge Information Feeding Method Contraceptive Method Maternal HG B and HCT Levels Breast Ob Episode Information Episode Created Date Number of Fetuses Patient Bloodtype Patient rh Status Prepregnancy Weight lbs Domestic Partner Domestic Partner Phone Father Name Adjunct Professor Of Law Status 09/06/19 20 1 CLOSED Fetus Data First Name Last Name Admitted to NICU Weight (g) Sex Living Outcome Pediatric Complications Fetus ID Race Codes Race Delivery Type , Spontane ous 1719 Tomas Calculation Initial Tomas Date Initial Exam Date Initial Exam Provider Initial Ultrasound Date Last Menstrual Period Date Ultra Sound Weeks Gestation 0 Eighteen To Twenty Week Tomas Update Ultra Sound Date Fundal Height At Umbil Quickening Date Ultra Sound Latest Weeks Gestation Final Tomas Confirmed By Final Tomas Confirmed Date Final Tomas Date Ultra Sound Latest Days Gestation 0 0 Menstrual History Last Menstrual Date Menses Monthly On Bcp Conception Prior Menses Frequency Hcg Plus Date Menarche Onset Age Delivery Information Delivery Date Delivery Type Labor Anesthesia Weeks Gestation Incision Type Labor Labor Length Hrs Delivered By Post Complications Tubal Sterilization Discharge Date Comments 9 Discharge Information Feeding Method Contraceptive Method Maternal HG B and HCT Levels Ob Episode Information Episode Created Date Number of Fetuses Patient Bloodtype Patient rh Status Prepregnancy Weight lbs Domestic Partner Domestic Partner Phone Father Name Adjunct Professor Of Law Status 09/06/19 20 1 CLOSED Fetus Data First Name Last Name Admitted to NICU Weight (g) Sex Living Outcome Pediatric Complications Fetus ID Race Codes Race Delivery Type 3855.53 2 M Full Term 1718 Primary Tomas Calculation Initial Tomas Date Initial Exam Date Initial Exam Provider Initial Ultrasound Date Last Menstrual Period Date Ultra Sound Weeks Gestation 0 Eighteen To Twenty Week Tomas Update Ultra Sound Date Fundal Height At Umbil Quickening Date Ultra Sound Latest Weeks Gestation Final Tomas Confirmed By Final Tomas Confirmed Date Final Tomas Date Ultra Sound Latest Days Gestation 0 0 Menstrual History Last Menstrual Date Menses Monthly On Bcp Conception Prior Menses Frequency Hcg Plus Date Menarche Onset Age Delivery Information Delivery Date Delivery Type Labor Anesthesia Weeks Gestation Incision Type Labor Labor Length Hrs Delivered By Post Complications Tubal Sterilization Discharge Date Comments 6 40.1 marginal cord insertion Discharge Information Feeding Method Contraceptive Method Maternal HG B and HCT Levels Ob Episode Information Episode Created Date Number of Fetuses Patient Bloodtype Patient rh Status Prepregnancy Weight lbs Domestic Partner Domestic Partner Phone Father Name Adjunct Professor Of Law Status 12/13/19 20 1 DELETED Tomas Calculation Initial Tomas Date Initial Exam Date Initial Exam Provider Initial Ultrasound Date Last Menstrual Period Date Ultra Sound Weeks Gestation 0 Eighteen To Twenty Week Tomas Update Ultra Sound Date Fundal Height At Umbil Quickening Date Ultra Sound Latest Weeks Gestation Final Tomas Confirmed By Final Tomas Confirmed Date Final Tomas Date Ultra Sound Latest Days Gestation 0 0 Menstrual History Last Menstrual Date Menses Monthly On Bcp Conception Prior Menses Frequency Hcg Plus Date Menarche Onset Age Delivery Information Delivery Date Delivery Type Labor Anesthesia Weeks Gestation Incision Type Labor Labor Length Hrs Delivered By Post Complications Tubal Sterilization Discharge Date Comments 0 39 +GBS, Discharge Information Feeding Method Contraceptive Method Maternal HG B and HCT Levels
--- OUTSIDE RECORDS SUMMARY | 2024-05-06 04:07 | XMS_ITS | Data Portability ---
Author Organization [place] [facility], Main Office Address [address] [place] [address] Assessment Encounter Date Assessment Date Assessment LastModified by Organization Details LastModified Time 02/17/2023 02/17/2023 The patient gave verbal consent using TeleHealth services and the consent is documented in the medical record prior to using the service. The patient has been informed of what a TeleMedicine visit is. Patient is located at home. Provider is located at office. Names and roles of persons in addition to the patient and provider participating in telemedicine services include . The patient had a 9 minute TeleMedicine consultation via [employer] to discuss the following: Post COVID syndrome with cough adrenal leukodystrophy Not available 02/18/2023 08:30:21 Plan of Treatment Reminders Order Date Submit Date Provider Last Modified By Organization Details Last Modified Time Details Appointments Follow Up 15 2024 10:00A M MELANIE Gregory Not available Not available Not available Lab CMP, serum or plasma 2022 023 [email or web address] [facility], [address] [place] [address], [address], 11/18/2022 08:18:43 lipid panel, serum 2022 023 [email or web address] [facility], [address] [place] [address], [place], [address], 11/18/2022 08:18:43 TSH, ultra-se nsitive, serum 2022 023 [email or web address] [facility], [address] [place] [address], [address], 11/18/2022 08:18:43 C reactive protein, QN, serum or plasma 2022 023 [email or web address] [facility], [address] [place] [address], [place], [address], 11/18/2022 08:18:43 rf (rheumat oid factor), serum 2022 023 [email or web address] [facility], [address] [place] [address], [place], [address], 11/18/2022 08:18:43 GRETEL (antinuc lear antibodi es) screen, ifa, serum 2022 023 [email or web address] [facility], [address] [place] [address], [place], [address], 11/18/2022 08:18:43 ESR (erythro cyte sediment ation rate), blood 2022 023 [email or web address] [facility], [address] [place] [address], [address], 11/18/2022 08:18:43 CBC w/ auto diff 2023 024 [email or web address] [facility], [address] [place] [address], [address], 02/16/2024 10:45:28 CMP, serum or plasma 2023 024 [email or web address] [facility], [address] [place] [address], [place], [address], 02/16/2024 10:45:29 vitamin D, 25-hydro xy, total, serum 2023 024 [email or web address] [facility], [address] [place] [address], [address], 02/16/2024 10:45:29 CBC w/ auto diff 2023 024 [email or web address] [facility], [address] [address], [place], [address], 02/16/2024 10:45:29 vitamin B12 + folate, serum or blood 2023 024 [email or web address] [facility], [address] [address], [place], [address], 02/16/2024 10:45:29 TSH + free T4, serum 2023 024 [facility], [address] [place] [address], [place], [address], 02/16/2024 10:45:29 HbA1c (hemoglo bin A1c), blood 2023 024 [email or web address] [facility], [address] [place] [address], [place], [address], 02/16/2024 10:45:29 iron + total iron-bin ding capacity (TIBC), serum 2023 024 [email or web address] [facility], [address] [place] [address], [place], [address], 02/16/2024 10:45:30 ferritin , serum or plasma 2023 024 [email or web address] [facility], [address] [place] [address], [place], [address], 02/16/2024 10:45:30 urinalys is, dipstick 2023 024 [email or web address] 00 [facility], [address], [place], [address], 2024 12:52:38 culture, urine + sensitiv ity 2023 024 [facility] (Lab), [address] [place], [address], 04/12/2024 12:42:30 Referral cardiolo gist referral 2022 023 [email or web address] [facility], [address], [address], [place], [address], 12/10/2022 11:04:43 endocrin ology referral [email or web address] [facility], [address], [address], [place], [address], 04/01/2023 16:00:21 Procedures None recorded . Surgeries None recorded . Imaging XR, knee, 3 view 2023 024 [email or web address] 56 Not available 02/23/2024 09:31:35 Medication Orders benzonat ate 200 mg capsule 2022 023 [id number], [address] [place], [place], [id number], 02/09/2024 11:34:48 azithrom ycin 250 mg tablet 2022 023 [facility] #70864, [address], [place], [id number], 02/09/2024 11:34:41 methylph enidate ER 10 mg tablet,e xtended release 2023 024 [facility] #32973, [address], [place], [id number], 2024 09:21:55 metronid azole 500 mg tablet 2023 024 [facility]38849, [address], [place], [id number], 04/11/2024 09:12:34 Patient TargetsNo targets recorded. Patient Instructions Encounter Date Encounter Id Patient Instructions Last Modified By Organization Details Last Modified Time 02/17/2023 [id number] Due to the COVID-19 (Novel Coronavirus) pandemic, it is within this context (and with the understanding that this method of patient encounter is in the patient? s best interest as well as the health and safety of other patients and the public) that ? telehealth? is being provided for this patient encounter rather than a hchp-ht-febk visit. This patient encounter is appropriate at this time. This patient has been advised of the potential risks and limitations of this mode of treatment (including, but not limited to, the absence of in-person examination) and has agreed to be treated in a remote fashion despite these risks. Any and all of the patient? s/patient? s family? s questions on this issue have been answered, and I have made no promises or guarantees to the patient. The patient has also been advised to contact this office for worsening conditions or problems, and seek emergency medical treatment and/or call 911 if the patient deems either necessary. HPI and/or vitals, if listed, were provided by the patient. 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 METAB OLIC PANEL (14) glucose 81 mg/dL 70-99 Not Available [facility] ([facility]) [address] [facility], [place], [address], 11/18/2022 11:37:36 11/18/19 23 11/18/2022 COMP. METAB OLIC PANEL (14) BUN 11 mg/dL 6-20 Not Available [facility] ([facility]) [address] [place], [address], 11/18/2022 11:37:36 11/18/19 23 11/18/2022 COMP. METAB OLIC PANEL (14) creatinine 0.86 mg/dL 0.57-1 .00 Not Available [facility] ([facility]) [address] [place], [address], 11/18/2022 11:37:36 11/18/19 23 11/18/2022 COMP. METAB OLIC PANEL (14) eGFR 90 mL/mi n/1.7 3 >59 Not Available [facility] ([facility]) [address] [place], [address], 11/18/2022 11:37:36 11/18/19 23 11/18/2022 COMP. METAB OLIC PANEL (14) BUN/creatini ne ratio 13 9-23 Not Available [facility] ([facility]) [address] [facility], [place], [address], 11/18/2022 11:37:36 11/18/19 23 11/18/2022 COMP. METAB OLIC PANEL (14) sodium 140 mmol/ L 134-14 4 Not Available [facility] ([facility]) [address] [place], [address], 11/18/2022 11:37:36 11/18/19 23 11/18/2022 COMP. METAB OLIC PANEL (14) potassium 5.0 mmol/ L 3.5-5. 2 Not Available [facility] ([facility]) [address] [facility] [place], [address], 11/18/2022 11:37:36 11/18/19 23 11/18/2022 COMP. METAB OLIC PANEL (14) chloride 103 mmol/ L 96-106 Not Available [facility] ([facility]) [address] [facility] [place], [address], 11/18/2022 11:37:36 11/18/19 23 11/18/2022 COMP. METAB OLIC PANEL (14) carbon dioxide, total 25 mmol/ L 20- Not Available [facility] ([facility]) [address] [facility], [place], [address], 11/18/2022 11:37:36 11/18/19 23 11/18/2022 COMP. METAB OLIC PANEL (14) calcium 10.1 mg/dL 8.7-10 .2 Not Available [facility] ([facility]) [address] [facility], [place], [address], 11/18/2022 11:37:36 11/18/19 23 11/18/2022 COMP. METAB OLIC PANEL (14) protein, total 7.6 g/dL 6.0-8. 5 Not Available [facility] ([facility]) [address] [facility] [place], [address], 11/18/2022 11:37:36 11/18/19 23 11/18/2022 COMP. METAB OLIC PANEL (14) albumin 4.8 g/dL 3.9-4. 9 Not Available [facility] ([facility]) [address] [facility] [place], [address], 11/18/2022 11:37:36 11/18/19 23 11/18/2022 COMP. METAB OLIC PANEL (14) globulin, total 2.8 g/dL 1.5-4. 5 Not Available [facility] ([facility]) [address] [facility] [place], [address], 11/18/2022 11:37:36 11/18/19 23 11/18/2022 COMP. METAB OLIC PANEL (14) A/G ratio 1.7 1.2-2. 2 Not Available [facility] ([facility]) [address] [facility], [place], [address], 11/18/2022 11:37:36 11/18/19 23 11/18/2022 COMP. METAB OLIC PANEL (14) bilirubin, total 0.4 mg/dL 0.0-1. 2 Not Available [facility] ([facility]) [address] [facility] [place], [address], 11/18/2022 11:37:36 11/18/19 23 11/18/2022 COMP. METAB OLIC PANEL (14) alkaline phosphatase 77 IU/L 44-121 Not Available [facility]) [address] [facility] [place], [address], 11/18/2022 11:37:36 11/18/19 23 11/18/2022 COMP. METAB OLIC PANEL (14) AST (SGOT) 17 IU/L 0-40 Not Available [facility] ([facility]) [address] [place], [address], 11/18/2022 11:37:36 11/18/19 23 11/18/2022 COMP. METAB OLIC PANEL (14) ALT (SGPT) 12 IU/L 0-32 Not Available [facility] ([facility]) [address] [place], [address], 11/18/2022 11:37:36 11/18/19 23 11/18/2022 LIPID PANEL cholesterol, total 174 mg/dL 100-19 9 Not Available [facility] ([facility]) [address] [place], [address], 11/18/2022 11:37:37 11/18/19 23 11/18/2022 LIPID PANEL triglyceride s 36 mg/dL 0-149 Not Available [facility] ([facility]) [address] [place], [address], 11/18/2022 11:37:37 11/18/19 23 11/18/2022 LIPID PANEL HDL cholesterol 73 mg/dL >39 Not Available [facility]) [address] [place], [address], 11/18/2022 11:37:37 11/18/19 23 11/18/2022 LIPID PANEL VLDL cholesterol neto 8 mg/dL 5-40 Not Available [facility] ([facility]) [address] [facility], [place], [address], 11/18/2022 11:37:37 11/18/19 23 11/18/2022 LIPID PANEL LDL chol calc ([facility]) 93 mg/dL 0-99 Not Available [facility]) [address] [facility], [place], [address], 11/18/2022 11:37:37 11/18/19 23 11/18/2022 LIPID PANEL comment: VIDEO PRODUCER Not Available [facility] ([facility]) [address] [facility], [place], [address], 11/18/2022 11:37:37 11/18/19 23 11/18/2022 RHEUM ATOID FACTO R (RF) rheumatoid factor (rf) <10.0 IU/mL <14.0 Not Available [facility] ([facility]) [address] [facility], [place], [address], 11/18/2022 11:37:38 11/18/19 23 11/18/2022 TSH RFX ON ABNOR MAL TO FREE T4 TSH 1.010 uIU/m L 0.450- 4.500 Not Available [facility] ([facility]) [address] [facility], [place], [address], 11/18/2022 11:37:39 11/18/19 23 11/18/2022 SEDIM ENTAT ION RATE- WESTE RGREN sedimentatio n rate-westerg srinivas 7 mm/HR 0-32 Not Available [facility] ([facility]) [address] [facility], [place], [address], 11/18/2022 11:37:40 11/18/19 23 11/18/2022 C-FIFI CTIVE PROTE IN, QUANT C-reactive protein, quant 5 mg/L 0-10 Not Available [facility] ([facility]) [address] [facility], [place], [address], 11/18/2022 11:37:40 11/18/19 23 11/18/2022 GRETEL BY IFA RFX TITER /AQUILINO SANDI GRETEL by ifa rfx titer/patter n NEGATI VE Negat tyra <1:80 Borde rline 1:80 Posit tyra >1:80 ICAP nomen mikel re: AC-0 For more infor harjinder alonzo about Hep-2 cell patte rns use ANApa ttern s.org , the offic ahmet guo for the Inter natio nal Conse nsus on Antin uclea r Antib jarad (GRETEL) Patte rns ([facility] ). Not Available [facility] ([facility]) [address] [facility] [facility], [place], [address], 11/18/2022 11:37:41 02/24/20 24 02/25/2024 IRON AND TOTAL IRON HAYLIE NG CAPAC ITY iron, total 132 mcg/d L 40-190 normal Not Available [address], [address], 02/25/2024 07:27:34 02/24/20 24 02/25/2024 IRON AND TOTAL IRON HAYLIE NG CAPAC ITY iron binding capacity 341 mcg/d L_(ca lc) 250-45 0 normal Not Available [facility] [address], [address], 02/25/2024 07:27:34 02/24/20 24 02/25/2024 IRON AND TOTAL IRON HAYLIE NG CAPAC ITY % saturation 39 %_(ca lc) 16-45 normal Not Available [address], [address], 02/25/2024 07:27:34 02/24/20 24 02/25/2024 COMPR EHENS TYRA METAB OLIC PANEL glucose 89 mg/dL 65-99 normal Fasti ng refer ence inter christin Not Available [address], [address], 02/25/2024 07:27:36 02/24/20 24 02/25/2024 COMPR EHENS TYRA METAB OLIC PANEL urea nitrogen (BUN) 12 mg/dL 7-25 normal Not Available [address], [address], 02/25/2024 07:27:36 02/24/20 24 02/25/2024 COMPR EHENS TYRA METAB OLIC PANEL creatinine 0.79 mg/dL 0.50-0 .97 normal Not Available [address], [address], 02/25/2024 07:27:36 02/24/20 24 02/25/2024 COMPR EHENS TYRA METAB OLIC PANEL eGFR 99 mL/mi n/1.7 3m2 > or = 60 normal Not Available [address], [address], 02/25/2024 07:27:36 02/24/20 24 02/25/2024 COMPR EHENS TYRA METAB OLIC PANEL BUN/creatini ne ratio SEE NOTE: (calc ) 6-22 Not Repor michael: BUN and Creat inine are withi n refer ence range . Not Available [address], [address], 02/25/2024 07:27:36 02/24/20 24 02/25/2024 COMPR EHENS TYRA METAB OLIC PANEL sodium 137 mmol/ L 135-14 6 normal Not Available [address], [address], 02/25/2024 07:27:36 02/24/20 24 02/25/2024 COMPR EHENS TYRA METAB OLIC PANEL potassium 4.8 mmol/ L 3.5-5. 3 normal Not Available [address] [place], [address], 02/25/2024 07:27:36 02/24/20 24 02/25/2024 COMPR EHENS TYRA METAB OLIC PANEL chloride 101 mmol/ L 98-110 normal Not Available [address] [place], [address], 02/25/2024 07:27:36 02/24/20 24 02/25/2024 COMPR EHENS TYRA METAB OLIC PANEL carbon dioxide 25 mmol/ L 20-32 normal Not Available [address], [address], 02/25/2024 07:27:36 02/24/20 24 02/25/2024 COMPR EHENS TYRA METAB OLIC PANEL calcium 10.1 mg/dL 8.6-10 .2 normal Not Available [address], [address], 02/25/2024 07:27:36 02/24/20 24 02/25/2024 COMPR EHENS TYRA METAB OLIC PANEL protein, total 8.2 g/dL 6.1-8. 1 high Not Available [address], [address], 02/25/2024 07:27:36 02/24/20 24 02/25/2024 COMPR EHENS TYRA METAB OLIC PANEL albumin 4.9 g/dL 3.6-5. 1 normal Not Available [address], [address], 02/25/2024 07:27:36 02/24/20 24 02/25/2024 COMPR EHENS TYRA METAB OLIC PANEL globulin 3.3 g/dL_ (calc ) 1.9-3. 7 normal Not Available [address], [address], 02/25/2024 07:27:36 02/24/20 24 02/25/2024 COMPR EHENS TYRA METAB OLIC PANEL albumin/glob ulin ratio 1.5 (calc ) 1.0-2. 5 normal Not Available [address], [address], 02/25/2024 07:27:36 02/24/20 24 02/25/2024 COMPR EHENS TYRA METAB OLIC PANEL bilirubin, total 0.9 mg/dL 0.2-1. 2 normal Not Available [address], [address], 02/25/2024 07:27:36 02/24/20 24 02/25/2024 COMPR EHENS TYRA METAB OLIC PANEL alkaline phosphatase 66 U/L 31-125 normal Not Available [address], [address], 02/25/2024 07:27:36 02/24/20 24 02/25/2024 COMPR EHENS TYRA METAB OLIC PANEL AST 19 U/L 10-30 normal Not Available [address], [address], 02/25/2024 07:27:36 02/24/20 24 02/25/2024 COMPR EHENS TYRA METAB OLIC PANEL ALT 13 U/L 6-29 normal Not Available [address], [address], 02/25/2024 07:27:36 02/24/20 24 02/25/2024 CBC (INCL UDES DIFF/ PLT) white blood cell count 4.0 thous and/u L 3.8-10 .8 normal Not Available [address], [address], 02/25/2024 07:27:37 02/24/20 24 02/25/2024 CBC (INCL UDES DIFF/ PLT) red blood cell count 4.68 olvin on/uL 3.80-5 .10 normal Not Available [address], [address], 02/25/2024 07:27:37 02/24/20 24 02/25/2024 CBC (INCL UDES DIFF/ PLT) hemoglobin 14.5 g/dL 11.7-1 5.5 normal Not Available [address], [address], 02/25/2024 07:27:37 02/24/20 24 02/25/2024 CBC (INCL UDES DIFF/ PLT) hematocrit 45.9 % 35.0-4 5.0 high Not Available [address], [address], 02/25/2024 07:27:37 02/24/20 24 02/25/2024 CBC (INCL UDES DIFF/ PLT) MCV 98.1 fL 80.0-1 00.0 normal Not Available [address], [address], 02/25/2024 07:27:37 02/24/20 24 02/25/2024 CBC (INCL UDES DIFF/ PLT) MCH 31.0 pg 27.0-3 3.0 normal Not Available [address], [address], 02/25/2024 07:27:37 02/24/20 24 02/25/2024 CBC (INCL UDES DIFF/ PLT) MCHC 31.6 g/dL 32.0-3 6.0 low For adult s, a sligh t decre ase in the calcu lated MCHC value (in the range of 30 to 32 g/dL) is most likel y not clini gwen villagomezi eric t; toney er, it shoul d be inter prete d with cauti on in corre latio n with other red cell nicanor eters and the patie nt's clini neto condi tion. Not Available [address] [place], [address], 02/25/2024 07:27:37 02/24/20 24 02/25/2024 CBC (INCL UDES DIFF/ PLT) RDW 12.4 % 11.0-1 5.0 normal Not Available [address], [address], 02/25/2024 07:27:37 02/24/20 24 02/25/2024 CBC (INCL UDES DIFF/ PLT) platelet count 211 thous and/u L 140-40 0 normal Not Available [address], [address], 02/25/2024 07:27:37 02/24/20 24 02/25/2024 CBC (INCL UDES DIFF/ PLT) MPV 12.0 fL 7.5-12 .5 normal Not Available [address], [address], 02/25/2024 07:27:37 02/24/20 24 02/25/2024 CBC (INCL UDES DIFF/ PLT) absolute neutrophils 2464 cells /uL 1500-7 800 normal Not Available [address], [address], 02/25/2024 07:27:37 02/24/20 24 02/25/2024 CBC (INCL UDES DIFF/ PLT) absolute lymphocytes 1108 cells /uL 850-39 00 normal Not Available [address], [address], 02/25/2024 07:27:37 02/24/20 24 02/25/2024 CBC (INCL UDES DIFF/ PLT) absolute monocytes 300 cells /uL 200-95 0 normal Not Available [address], [address], 02/25/2024 07:27:37 02/24/20 24 02/25/2024 CBC (INCL UDES DIFF/ PLT) absolute eosinophils 108 cells /uL 15-500 normal Not Available [address], [address], 02/25/2024 07:27:37 02/24/20 24 02/25/2024 CBC (INCL UDES DIFF/ PLT) absolute basophils 20 cells /uL 0-200 normal Not Available [address], [address], 02/25/2024 07:27:37 02/24/20 24 02/25/2024 CBC (INCL UDES DIFF/ PLT) neutrophils 61.6 % normal Not Available [address], [address], 02/25/2024 07:27:37 02/24/20 24 02/25/2024 CBC (INCL UDES DIFF/ PLT) lymphocytes 27.7 % normal Not Available [address], [address], 02/25/2024 07:27:37 02/24/20 24 02/25/2024 CBC (INCL UDES DIFF/ PLT) monocytes 7.5 % normal Not Available [address], [address], 02/25/2024 07:27:37 02/24/20 24 02/25/2024 CBC (INCL UDES DIFF/ PLT) eosinophils 2.7 % normal Not Available [address], [address], 02/25/2024 07:27:37 02/24/20 24 02/25/2024 CBC (INCL UDES DIFF/ PLT) basophils 0.5 % normal Not Available [address], [address], 02/25/2024 07:27:37 02/24/20 24 02/25/2024 GUILLERMO TIN ferritin 118 NG/mL 16-154 normal Not Available [facility] [address] [place], [address], 02/25/2024 07:27:38 02/24/20 24 02/25/2024 VITAM IN B12/F OLATE , SERUM PANEL vitamin B12 551 pg/mL 200-11 00 normal Not Available [address] [address] [place], [address], 02/25/2024 07:27:39 02/24/20 24 02/25/2024 VITAM IN B12/F OLATE , SERUM PANEL folate, serum >24.0 NG/mL normal Refer ence Range Low: <3.4 Borde rline : 3.4-5 .4 Deepa l: >5.4 Not Available [address], [address], 02/25/2024 07:27:39 02/24/20 24 02/25/2024 VITAM IN D,25- OH,TO SUNG,I A vitamin D,25-oh,tota l,ia 34 NG/mL 30-100 normal Vitam in D Statu s 25-OH Vitam in D: Defic iency : <20 ng/mL Insuf ficie ncy: 20 - 29 ng/mL Optim al: > or = 30 ng/mL For 25-OH Vitam in D testi ng on patie nts on D2-ricci pplem entat ion and patie nts for whom quant itati on of D2 and D3 fract ions is requi red, the [facility] eD(TM ) 25-OH VIT D, (D2,D 3), LC/MS /MS is recom magan d: order code 34777 (mariluz ents >2yrs ). See Note 1 Note 1 For addit ional infor madelyn mack refer to http: //issa cabrera ics.c om/fa q/FAQ 199 (This link is being provi ded for infor harjinder roberson/ ana reynoso purpo ses only. ) Not Available [address] [address] [place], [address], 02/25/2024 07:27:40 02/24/20 24 02/25/2024 TSH W/REF ANUSHA TO FT4 TSH w/reflex to FT4 1.36 mIU/L normal Refer ence Range > or = 20 Years 0.40- 4.50 Pregn archana Range s First trime ster 0.26- 2.66 Secon d trime ster 0.55- 2.73 Third trime ster 0.43- 2.91 Not Available [facility] [address] [place], [address], 02/25/2024 07:27:42 02/24/20 24 02/25/2024 HEMOG LOBIN A1C hemoglobin A1C 5.7 %_of_ total _HGB <5.7 high For someo ne witho ut known diabe dannielle, a hemog lobin A1c value betwe en 5.7% and 6.4% is consi stent with predi abete s and shoul d be confi rmed with a follo w-up test. For someo ne with known diabe dannielle, a value <7% indic ates that their diabe dannielle is well contr olled . A1c targe ts shoul d be indiv idual ized based on durat ion of diabe dannielle, age, comor bid condi tions , and other consi derat ions. This assay resul t is consi stent with an incre ased risk of diabe dannielle. Curre ntly, no conse nsus exist s aida wilburn use of hemog lobin A1c for diagn osis of diabe dannielle for child srinivas. Not Available [facility] [address] [place], [address], 02/25/2024 07:27:42 04/08/20 24 2024 urina lysis , dipst ick Leukocytes (reference range: negative allen/??l) Negati ve Not Available [facility], [place], [address], 2024 09:24:33 04/08/20 24 2024 urina lysis , dipst ick Nitrite (reference rage: negative mg/dl) negati ve Not Available [address], [address], 2024 09:24:33 04/08/20 24 2024 urina lysis , dipst ick Urobilinogen (reference range: 0.2-1 mg/dl) 0.2 Not Available [address], [address], 2024 09:24:33 04/08/20 24 2024 urina lysis , dipst ick Protein (reference range: negative mg/dl) Negati ve Not Available [address], [address], 2024 09:24:33 04/08/20 24 2024 urina lysis , dipst ick pH (reference range: 5-7) 7.0 Not Available [address], [address], 2024 09:24:33 04/08/20 24 2024 urina lysis , dipst ick Blood (reference range: negative Otto/??l) Negati ve Not Available [address], [address], 2024 09:24:33 04/08/20 24 2024 urina lysis , dipst ick Specific [place] (reference range: 1.005-1.030) 1.015 Not Available [address], [address], 2024 09:24:33 04/08/20 24 2024 urina lysis , dipst ick Ketone (reference range: negative mg/dl) Negati ve Not Available [address], [address], 2024 09:24:33 04/08/20 24 2024 urina lysis , dipst ick Bilirubin (reference range: negative mg/dl) Negati ve Not Available [address], [address], 2024 09:24:33 04/08/20 24 2024 urina lysis , dipst ick Glucose (reference range: negative mg/dl) Negati ve Not Available [address], [address], 2024 09:24:33 04/08/20 24 2024 urina lysis , dipst ick Appearance Clear Not Available [address], [address], 2024 09:24:33 04/08/20 24 2024 urina lysis , dipst ick Color Yellow Not Available [address], [address], 2024 09:24:33 02/23/20 24 02/23/2024 XR, knee, 3 view No observ ation record ed. [facility] [address] [place], [address], 2024 09:27:12 Result Notes None recorded. 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 Active 2022 Jayme Stokes RN null, [facility] 3 09:15:26 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 Chantelle Roldan MD [address], [address], [place], [address] , [facility] 3 10:56:59 Disorder of adrenal gland 94250275 Active 2022 Chantelle Roldan MD [address], [address], [place], [address] , [employer] 3 10:59:28 Pain of right knee region 3601419874008 05 Active 2023 MELANIE Gregory [address], [address], [place], [address] , [facility] 4 11:48:31 Attention deficit hyperactiv ity disorder, predominan tly inattentiv e type 13370409 Active 2023 MELANIE Gregory [address], [address], [place], [address] , [employer] 4 11:51:36 Adult health examinatio n Active 2023 MELANIE Gregory [address], [address], [place], [address] , [facility] 4 11:57:11 Fatigue 56905836 Active 2023 MELANIE Gregory [address] [facility], [facility] [address], [place], [address] , [facility] [employer] [facility] 4 11:58:09 Dysuria 99301790 Active 2023 Mami Rehman RN [facility], [facility] [employer] [facility] 4 09:24:34 Bacterial vaginosis 210233639 Active 2023 MELANIE Gregory [address] [facility], [facility] [address], [place], [address] , [facility] [employer] [facility] 4 09:36:33 Problem Notes None recorded. Procedures Surgical History Date Name Laterality Status Provider Name and Address Organization Details Recorded Time 11/22/19 20 delivery completed Not Available [facility] 06/11/2022 15:40:40 12/22/19 16 delivery completed Not Available [facility] 06/11/2022 15:40:40 Appendectomy completed Not Available [facility] 06/11/2022 15:40:40 D & c after delivery completed Not Available [facility] 06/11/2022 15:40:40 Imaging Results Imaging Date Name Status LastModified by Organiz ation Details LastModified Time 02/23/2024 XR, knee, 3 view completed [facility] [address] [place], [address], 2024 09:27:12 Procedure Notes None recorded. Medical Equipment None Reported. Allergies Allergen ID Allergen Name Allergen Category Reaction Reaction Severity Criticality Documentation Date Start Date Code Code System Note Provider Name and Address Organization Details Recorded Time 22870 Product containin g penicilli n and antibioti c (product) medicatio n Not available Not available Not available 06/11/2022 49534 05 SNOMED Not Available [facility] 15:43:23 Medications Name Sig Start Date Stop Date Status Note LastModified by Organization Details LastModified Time cetirizin e 10 mg tablet TAKE 1 TABLET BY MOUTH EVERY MORNING 11/11 completed Not Available Not Available Not Available azithromy angela 250 mg tablet TAKE 2 TABLETS BY MOUTH FOR 1 DAY THEN TAKE 1 TABLET BY MOUTH DAILY FOR 4 DAYS 02/08 completed Not Available Not Available Not Available fluconazo le 150 mg tablet TAKE 1 TABLET BY MOUTH FOR 1 DAY active Not Available Not Available No t Available benzonata te 200 mg capsule TAKE 1 CAPSULE BY MOUTH THREE TIMES DAILY NEEDED 02/08 completed Not Available Not Available Not Available valacyclo vir 1 gram tablet Take 1 tablet 3 times a day by oral route for 7 days. active Not Available Not Available No t Available hydrocodo ne 5 mg-acetam inophen 325 mg tablet TK 1 TO 2 TS PO Q 4 H PRF PAIN active Not Available Not Available No t Available sertralin e 100 mg tablet TAKE 1 TABLET BY MOUTH EVERY DAY 08/06 completed Not Available Not Available Not Available phentermi ne 15 mg capsule TAKE 1 CAPSULE BY MOUTH EVERY DAY IN THE MORNING 02/08 completed Not Available Not Available Not Available methylphe nidate ER 10 mg tablet,ex tended release TAKE 1 TABLET BY MOUTH EVERY DAY IN THE MORNING FOR 14 DAYS 04/08 completed Not Available Not Available Not Available cosyntrop in 0.25 mg solution for injection INJECT 1 ML INTO THE MUSCLE INSTRUCT ED ONCE 02/08 completed Not Available Not Available Not Available metronida zole 500 mg tablet Take 1 tablet twice a day by oral route for 7 days. 2023 active Not Available Not Available Not Avai lable Nortrel (28) 1 mg-35 mcg tablet TK 1 T PO QD active Not Available Not Available No t Available lidocaine 5 % topical patch APPLY 1 PATCH BY TRANSDER MAL ROUTE ONCE DAILY (MAY WEAR UP TO 12HOURS. ) active Not Available Not Available No t Available methylphe nidate ER 20 mg tablet,ex tended release Take 1 tablet every day by oral route in the morning for 30 days. active mood change , worried more , mad at everybod y Not Available Not Available Not Available sertralin e 25 mg tablet Take 2 tablets every day by oral route in the morning for 90 days. 02/08 completed Not Available Not Available Not Available dextroamp hetamine- amphetami ne ER 10 mg 24hr capsule,e xtend release Take 1 capsule every day by oral route in the morning for 30 days. active Not Available Not Available No t Available metformin ER 500 mg tablet,ex tended release 24 hr Take 1 tablet every day by oral route in the morning for 30 days. active Not Available Not Available No t Available sertralin e 50 mg tablet TAKE 1 TABLET BY MOUTH EVERY MORNING 02/08 completed Not Available Not Available Not Available Ortho Tri-Cycle n LO (28) 0.18 mg/0.215 mg/0.25 mg-25 mcg tablet Take 1 tablet every day by oral route. 2012 active Not Available Not Available Not Avai lable Multiple Vitamin, Womens tablet Take by oral route. active Not Available Not Available No t Available Tri-Previ fem (28) 0.18 mg(7)/0.2 15 mg(7)/0.2 5 mg(7)-35 mcg tablet active Not Available Not Available Not Available nitrofura ntoin monohydra te/macroc rystals 100 mg capsule TAKE 1 CAPSULE BY MOUTH EVERY 12 HOURS FOR 7 DAYS 02/08 completed Not Available Not Available Not Available Complete Jesus DHA 29 mg iron-1 mg-200 mg oral pack TK 1 T AND 1 C PO QD 10/22 completed Not Available Not Available Not Available B12 active Not Available Not Availa ble Not Available Anusol-HC 2.5 % topical cream with perineal applicato r APPLY A THIN LAYER TO THE AFFECTED AREA(S) BY TOPICAL ROUTE 2-4 TIMESDAI LY 02/08 completed Not Available Not Available Not Available Vitals Date Recorded Body mass index (BMI) Body height Oxygen saturation Oxygen saturation in Arterial blood by Pulse oximetry Heart rate Body temperature Body weight Systolic blood pressure Diastolic blood pressure Provider Name and Address Organization Details Last Updated DateTime 2 24.3 kg/m2 160.02 cm 98 % 98 % 107 /min 97.8 [degF] 08454.1 5 g 100 mm[Hg] 72 mm[Hg] Not Available [facility] 3 15:41:28 Date Recorded Body height Body mass index (BMI) Body weight Body temperature Heart rate Oxygen saturation Oxygen saturation in Arterial blood by Pulse oximetry Systolic blood pressure Diastolic blood pressure Provider Name and Address Organization Details Last Updated DateTime 3 160.02 cm 26.4 kg/m2 26686.2 6 g 97.7 [degF] 89 /min 99 % 99 % 108 mm[Hg] 70 mm[Hg] VERONICA Huber [facility] [employer] [facility] 3 12:05:49 Date Recorded Body height Body mass index (BMI) Body weight Body temperature Heart rate Oxygen saturation Oxygen saturation in Arterial blood by Pulse oximetry Systolic blood pressure Diastolic blood pressure Provider Name and Address Organization Details Last Updated DateTime 4 160.02 cm 25.5 kg/m2 01661.3 g 98.3 [degF] 93 /min 100 % 100 % 96 mm[Hg] 72 mm[Hg] Mami Rehman RN [facility] [employer] [facility] 4 11:38:39 Date Recorded Body height Body mass index (BMI) Body weight Body temperature Heart rate Oxygen saturation Oxygen saturation in Arterial blood by Pulse oximetry Systolic blood pressure Diastolic blood pressure Provider Name and Address Organization Details Last Updated DateTime 4 160.02 cm 25.3 kg/m2 34237.7 1 g 98.2 [degF] 97 /min 100 % 100 % 100 mm[Hg] 80 mm[Hg] Mami Rehman RN [facility] [employer] [facility] 4 09:23:25 Social History Question Answer Notes LastModified by Organizat ion Details LastModified Time Tobacco Smoking Status Never Smoker Not Available [facility] 06/11/2022 15:40:32 What Is Your Level Of Alcohol Consumption? Occasional [id number] Information not available 06/11/2022 What Is Your Level Of Caffeine Consumption? Moderate [id number] Information not available 06/11/2022 How Much Tobacco Do You Chew? None [id number] Information not available 06/11/2022 In The 14 Days Before Symptom Onset, Have You Had Close Contact With A Laboratory-confir med COVID-19 While That Case Was Ill? No [id number] Information not available 06/11/2022 In The 14 Days Before Symptom Onset, Have You Had Close Contact With A Person Who Is Under Investigation For COVID-19 While That Person Was Ill? No [id number] Information not available 06/11/2022 Which Illicit Or Recreational Drugs Have You Used? None [id number] Information not available 06/11/2022 Do You Or Have You Ever Used E-cigarettes Or Vape? Never Used Electronic Cigarettes [id number] Information not available 06/11/2022 What Is Your Occupation? [employer] [id number] Information not available 06/11/2022 Do You Or Have You Ever Used Smokeless Tobacco? Never Used Smokeless Tobacco [id number] Information not available 06/11/2022 Sex: Unknown Functional Status None recorded. Mental Status None recorded. Family History Relationship Description Onset Age of this Age Resolved Age Notes LastModified by Organization Details LastModified Time Mother Hyperthyroid ism [id number] [id number] Not available 06/11/2022 15:40:41 Mother Hypertensive disorder [id number] Not available 06/11/2022 15:40:41 Mother Obesity [id number].018 [id number] Not available 06/11/2022 15:40:41 Father Malignant tumor of testis [id number].096 [id number] Not available 06/11/2022 15:40:41 Son Adrenoleukod ystrophy [id number].991 [id number] Not available 06/11/2022 15:40:41 Son Cutaneous mastocytosis [id number].594 [id number] Not available 06/11/2022 15:40:41 Medical History Condition Response DEPRESSION (INCLUDING POST ) Y Gynecological HistoryNo gynecological history recorded. Obstetrics History GPAL:G 0 P 0 0 0 0 Immunizations Vaccine Type Date Status Note Provider Nam e and Address Organization Details Recorded Time Influenza, split virus, quadrivalent, preservative 2 completed Not Available [facility] 06/11/2022 15:43:21 Tdap 6 completed Not Available [facility] 06/11/2022 15:43:21 Past Encounters Encounter ID Performer Location Encounter Start Date Encounter Closed Date Diagnosis/Indication Diagnosis SNOMED-CT Code Diagnosis ICD10 Code Diagnosis Note [id number] [facility] [address] [place] [address] 08/06/2020 00:00:00 08/06/2020 13:11:38 [id number] [facility] [address] [place] [address] 10/09/2020 00:00:00 10/09/2020 15:20:13 [id number] [facility] [address] [place] [address] 03/05/2021 00:00:00 03/05/2021 14:36:37 [id number] [address] [place] [address] 04/16/2021 00:00:00 04/16/2021 18:32:41 [id number] Chantelle Roldan MD [address] [address] [place] [address] 11/11/2022 11:59:30 11/11/2022 12:38:45 Family history of Cardiovascular disease 270722377 Z82.49 Multiple joint pain 3567 8005 M25.50 Hyperlipid emia screening 329716676 Z13.220 Thyroid di sorder screening 398750515 Z13.29 Adult heal th examination 190874459 Z00.00 [id number] Chantelle Roldan MD [address] [address] [place] [address] 02/17/2023 10:28:28 02/17/2023 10:58:16 Post-acute COVID-19 3645784422 U09.9 Simply saline nasal spray and Hot packs to face. 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 Adult heal th examination 825860124 Z00.00 Fatigue 87953257 R53.83 [id number] MELANIE Gregory [address] [address] 2024 09:14:06 2024 14:00:35 Dysuria 09569391 R30.0 Health Concerns Section Related Observation LastModified by Organization Detai ls LastModified Time None Recorded Concern Status LastModified by Organization Details LastModified Time None Recorded Advance Directives Directive None Recorded Payers Encounter Date Sequence Insurance Name Policy Number Policy Porter Covered Member ID Porter Member ID Guarantor Name 11/11/2022 1 [employer] - OPEN [employer]ESS Nohemy Eugene [id number] OI Nohemy Eugene 02/17/2023 1 [employer] - [employer] Nohemy Eugene [id number] OI Nohemy Eugene 02/09/2024 1 [place] [id number] Nohemy Eugene [id number] Nohemy Eugene 2024 1 [employer] [id number] Nohemy Eugene [id number] Nohemy Eugene Notes Date Note Type Note Provider Name and Address Organization Details Recorded Time 11/11/2022 text/html Here today for wellness visit.Had stomach pains and felt tight. Chest felt tightGoing to dross puller and she is leaving. Was checking thyroid. Thinks has hypoglycemia.Has a hx of PPD and is on sertraline. Her chest feels ok. Mother has RA and has right knee pain and right hand pain. Has shoulder pains. Due for BW Chantelle Roldan MD [address], [address], [place], [address], [facility] 11/12/2022 06:29:55 02/17/2023 text/html Telehealth encou nter. Pt reports having COVID on 12/31/22 and since then has had a cough It is a productive cough and clear phlegm. Has pressure of jaw and face. 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 Chantelle Roldan MD [address], [place], [address], [facility] 02/18/2023 08:31:16 02/09/2024 text/html Never diagnosed as a child , but definitely has problems focussing , getting things done MELANIE Gregory [address], [address], [place], [address], [employer] [facility] 03/07/2024 12:29:22 2024 text/html left flank pain , no chills , fever MELANIE Gregory [address] [address], [place], [address], [employer] [facility] 04/18/2024 09:27:43 OBGyn Episode No OBEpisode recorded.
== END 2024-05-05 17:25 | disposition home or self-care (01) ==
PROVIDERS: Emergency Provider Emergency Medicine; PCP Family Medicine
DX: N83.201 Unspecified ovarian cyst, right side (principal); N70.11 Chronic salpingitis; Z20.822 Contact with and (suspected) exposure to COVID-19
CPT/HCPCS: 36415; 71275; 74177; 76830; 76856; 80053; 81003; 81025; 83605; 83690; 83735; 83880; 84484; 85025; 87637; 93005; 96372; 99284; A9270; J0696; J2003; Q9967